=== PATIENT | male | born 1950 | race Caucasian/White ===

== ENCOUNTER 2023-11-23 10:13 | Outpatient (AMB) | payer OTHER, SELFPAY ==
--- NOTE | 2023-11-23 09:30 | MHC.PC.OV ---
Vital Signs 11/23/23 10:34 Height 5 ft 6.34 in Weight 247 lb BMI 39.5 BP 122/67 Blood Pressure Location Lt brachial Position Sitting Respiration 16 Pulse 86 Pulse Source Pulse Oximeter Temp 97.6 F Temp Source Oral Pulse Oximetry (%) 97 Oxygen Delivery Method Room Air Intake Visit Reasons: Follow Up ER Intake Note: New patient visit Commercial Lines Account Manager Required: No Allergies Opioids - Morphine Analogues Allergy (Unknown, Verified 11/23/23 10:23) Rash Medication List - Last Reconciled 11/23/23 by Mandy Mcpherson MD aspirin (Adult Low Dose Aspirin) 81 mg PO DAILY atorvastatin 80 mg PO DAILY blood sugar diagnostic (FreeStyle Lite Strips) As directed colchicine 0.6 mg PO DAILY dulaglutide (Trulicity) 0.75 mg subcut QWEEK empagliflozin (Jardiance) 10 mg PO DAILY furosemide 20 mg PO DAILY glucosamine sulfate 1,000 mg PO BID insulin glargine (Lantus Solostar U-100 Insulin) 42 units subcut QAM lancets (FreeStyle Lancets) As directed lisinopril 10 mg PO BID metoprolol tartrate (Lopressor) 50 mg PO BID nitroglycerin 0.3 mg sublingual Q5M PRN Tobacco use date assessed: 11/23/23 Fall risk assessment: No Falls in past year Dental Screening Dental Screen Date: 11/23/23 Did you have a dental visit in the last 12 months?: No Did you have a dental problem in the last 6 months where you did not have access to dental care?: Yes Was dental information given to patient?: No (Patient will find one ) HPI HPI Comments History of Present Illness Details The patient is a 73 year old male with a past medical history of type 2 diabetes, insulin use, CAD, dCHF, hypertension, hyperlpidemia, GERD, OA, MRSA, obesity, gout presenting for follow up Endocrine: Type 2 insulin dependent diabetes. On lantus 42 units, trulicity, jardiance. Last A1C 7.7% 08/2023. UTD for eye exam-Dr Poole, [facility]. Denies neuropathy. No podiatry. CV: Follows with Dr Faulkner. CAD s/p PCI LAD 2005 and ANASTASIA to OM 2008 then CABG x 4 ~04/2016. On ASA, lipitor, lisinopril, lopressor, lasix, and NTG prn. History of colon polyp. Says last colonoscopy ~8 years ago, told 10 years, records pending [facility] Surgical History (Updated 11/23/23 @ 10:54 by Joyce Camilo CMA) History of knee replacement procedure of right knee Family History (Updated 11/23/23 @ 11:02 by Joyce Camilo CMA) Maternal Grandfather Cardiovascular disease Maternal Grandmother Diabetes Hypercholesteremia Social History Housing: House Patient Tobacco Use Status: Former Tobacco user e-Cigarette/Vaping Use: Never Used Second Hand Smoke Exposure: No service: Yes Current occupational status: retired Cognitive needs: No Hearing needs: Yes ( states he needs hearing aids) Vision needs: Yes (glasses) Questionnaire PHQ-9 Over the last 2 weeks, how often have you been bothered by any of the following problems? 1. Little interest or pleasure in doing things: not at all 2. Feeling down, depressed, or hopeless: not at all 3. Trouble falling or staying asleep, or sleeping too much: not at all 4. Feeling tired or having little energy: not at all 5. Poor appetite or overeating: not at all 6. Feeling bad about yourself - or that you are a failure or have let yourself or your family down: not at all 7. Trouble concentrating on things, such as reading the newspaper or watching television: not at all 8. Moving or speaking so slowly that other people could have noticed. Or the opposite - being so fidgety or restless that you have been moving around a lot more than usual: not at all 9. Thoughts that you would be better off or of hurting yourself in some way: not at all Total score: 0 Depression Screening Interpretation: Negative (noted) Depression Screening Done: Yes 19225 - PHQ-9 Billing: Yes Source: Developed by Drs. Gary Davidson, Mary Moe, Chris Johnson and colleagues, with an educational jayesh from [employer]. Thrive Questionnaire Date Thrive assessed: 11/23/23 I am a: Patient What is your living situation today?: I have a steady place to live Within the past 12 months, did the food you bought not last and you didn't have the money to get more?: Never true Within the past 12 months, did you worry whether your food would run out before you got money to buy more?: Never true Do you have trouble paying for medicines?: No Do you have trouble getting transportation to medical appointments?: No Do you have trouble paying your heating and electricity bill?: No Do you have trouble taking care of your child, family member or friend?: No Do you have trouble with day-to-day activities such as bathing, preparing meals, shopping, managing finances, etc.?: No Are you currently unemployed and looking for a job?: No Are you interested in more education?: No Please select the resources that you would like help with: None Currently or been in a relationship where the following occur: no concerns reported THRIVE Score: 0 AUDIT C Alcohol Use Questionnaire (AUDIT-C) 1. How often do you have a drink containing alcohol?: Monthly or less 2. How many drinks containing alcohol do you have on a typical day when you are drinking?: 1 or 2 3. How often do you have six or more drinks on one occasion?: Never Total Score: 1 JOELLE-7 AMB Questionnaire JOELLE-7 Date JOELLE - 7 assessed: 11/23/23 Feeling nervous, anxious, or on edge: 0 = Not at all Not being able to stop or control worryin = Not at all Worrying too much about different things: 0 = Not at all Trouble relaxin = Not at all Being so restless that it is hard to sit still: 0 = Not at all Becoming easily annoyed or irritable: 0 = Not at all Feeling afraid as if something awful might happen: 0 = Not at all Total JOELLE-7 score (0-4 normal; 5-9 mild; 10-14 moderate; 15-21 severe): 0 Source: Developed by Drs. Gary Davidson, Mary Moe, Chris Johnson and colleagues, with an educational jayesh from [employer]. JOELLE-7 Assessment Billing JOELLE-7 Assessment Tool: JOELLE-7 Assessment 36108 Review of Systems Const Details: ROS CONSTITUTIONAL: Denies weight loss, fever and chills. HEENT: Denies changes in vision and hearing. RESPIRATORY: Denies SOB and cough. CV: Denies palpitations and CP GI: Denies abdominal pain, nausea, vomiting and diarrhea. : Denies dysuria and urinary frequency. MSK: Denies new myalgia and joint pain. SKIN: Denies rash and pruritus. NEUROLOGICAL: Denies headache PSYCHIATRIC: Denies recent changes in mood. Physical exam (Primary Care) Vital Signs: Last Vital Signs Temp 97.6 F 11/23/23 10:34 Pulse 86 11/23/23 10:34 Resp 16 11/23/23 10:34 BP 122/67 11/23/23 10:34 Pulse Ox 97 11/23/23 10:34 Oxygen Delivery Method Room Air 11/23/23 10:34 PHYSICAL EXAM: GENERAL: Alert and oriented x 3. NAD EYES: EOMI. Anicteric. HENT: Moist mucous membranes. No scleral icterus. No cervical lymphadenopathy. LUNGS: Clear to auscultation bilaterally. CARDIOVASCULAR: Regular rate and rhythm. No murmur. No JVD. ABDOMEN: Soft, non-tender +bs EXTREMITIES: No edema. Non-tender. SKIN: No rashes or lesions. Warm. NEUROLOGIC: No focal neurological deficits. CN II-XII grossly intact PSYCHIATRIC: Cooperative. Appropriate mood and affect BMI result Body Mass Index 39.5 Tobacco/Smoking Status: Tobacco use Status Tobacco use date assessed 11/23/23 11/23/23 09:43 Patient Tobacco Use Status Former Tobacco user 11/23/23 09:43 e-Cigarette/Vaping Use Never Used 11/23/23 09:43 Depression Screening Interpretation: Negative (noted) Currently or been in a relationship where the following occur: no concerns reported Assessment and Plan Assessment & Plan (1) CAD (coronary artery disease): Comment: stable. utd with cardiology. continue bb, MATTHEW, asa, jardiance Code(s): I25.10 - Atherosclerotic heart disease of [place] coronary artery without angina pectoris Qualifiers: Associated angina: without angina Coronary Disease-Associated Artery/Lesion type: bypass graft Circle vs. transplanted heart: [place] heart Qualified Code(s): I25.810 - Atherosclerosis of coronary artery bypass graft(s) without angina pectoris (2) History of four vessel coronary artery bypass graft: Code(s): Z95.1 - Presence of aortocoronary bypass graft (3) Type 2 diabetes mellitus with hyperglycemia, with long-term current use of insulin: Comment: Due for A1C Continued efforts toward weight loss-decrease calories, carbohydrates and increase exercise Continue current medications pending results Code(s): E11.65 - Type 2 diabetes mellitus with hyperglycemia; Z79.4 - [facility] (current) use of insulin (4) Morbid obesity: Comment: Recommend 30 minutes cardiovascular exercise at least 5 times weekly, continue GLP, decrease calories Code(s): E66.01 - Morbid (severe) obesity due to excess calories (5) MRSA (methicillin resistant Staphylococcus aureus) colonization: Comment: no recent infections Code(s): Z22.322 - Carrier or suspected carrier of Methicillin resistant Staphylococcus aureus (6) Colon polyp: Code(s): K63.5 - Polyp of colon Qualifiers: Colon location: unspecified part of colon Colon polyp type: unspecified Qualified Code(s): K63.5 - Polyp of colon (7) Hepatic steatosis: Code(s): K76.0 - Fatty (change of) liver, not elsewhere classified (8) GERD (gastroesophageal reflux disease): Code(s): K21.9 - Gastro-esophageal reflux disease without esophagitis Qualifiers: Esophagitis presence: esophagitis presence not specified Qualified Code(s): K21.9 - Gastro-esophageal reflux disease without esophagitis (9) Gout: Code(s): M10.9 - Gout, unspecified Qualifiers: Gout etiology: idiopathic Gout site: unspecified site Chronicity: unspecified Qualified Code(s): M10.00 - Idiopathic gout, unspecified site (10) Osteoarthritis: Code(s): M19.90 - Unspecified osteoarthritis, unspecified site Qualifiers: Osteoarthritis location: multiple joints Osteoarthritis type: primary Qualified Code(s): M15.9 - Polyosteoarthritis, unspecified (11) Diastolic congestive heart failure: Code(s): I50.30 - Unspecified diastolic (congestive) heart failure Qualifiers: Heart failure chronicity: chronic Qualified Code(s): I50.32 - Chronic diastolic (congestive) heart failure (12) History of tobacco use: Code(s): Z87.891 - Personal history of nicotine dependence Plan: quit 2005. consider screening ldct Orders: Orders Microalbumin, Random (w Creat) Today E11.65 - Type 2 diabetes mellitus with hyperglycemia, I25.10 - Atherosclerotic heart disease of [place] coronary artery without angina pectoris, Z79.4 - [facility] (current) use of insulin Hemoglobin A1c Today E11.65 - Type 2 diabetes mellitus with hyperglycemia, I25.10 - Atherosclerotic heart disease of [place] coronary artery without angina pectoris, Z79.4 - [facility] (current) use of insulin Comprehensive Met. Panel Today E11.65 - Type 2 diabetes mellitus with hyperglycemia, I25.10 - Atherosclerotic heart disease of [place] coronary artery without angina pectoris, Z79.4 - [facility] (current) use of insulin Lipid Panel Today E11.65 - Type 2 diabetes mellitus with hyperglycemia, I25.10 - Atherosclerotic heart disease of [place] coronary artery without angina pectoris, Z79.4 - [facility] (current) use of insulin Medications: New nitroglycerin do not exceed 3 doses per episode 0.3 mg sublingual Q5M PRN 30 tabs 3RF chest pain Coding Level of Care Code Est Pt Level 5 (27548) Complex EM visit Add On G2211 Diagnoses Coronary artery disease involving coronary bypass graft of [place] heart without angina pectoris I25.810 Associated angina: without angina Coronary Disease-Associated Artery/Lesion type: bypass graft Circle vs. transplanted heart: [place] heart History of four vessel coronary artery bypass graft Z95.1 Type 2 diabetes mellitus with hyperglycemia, with long-term current use of insulin E11.65; Z79.4 Morbid obesity E66.01 MRSA (methicillin resistant Staphylococcus aureus) colonization Z22.322 Polyp of colon, unspecified part of colon, unspecified type K63.5 Colon location: unspecified part of colon Colon polyp type: unspecified Hepatic steatosis K76.0 Gastroesophageal reflux disease, unspecified whether esophagitis present K21.9 Esophagitis presence: esophagitis presence not specified Idiopathic gout, unspecified chronicity, unspecified site M10.00 Gout etiology: idiopathic Gout site: unspecified site Chronicity: unspecified Primary osteoarthritis involving multiple joints M15.9 Osteoarthritis location: multiple joints Osteoarthritis type: primary Chronic diastolic congestive heart failure I50.32 Heart failure chronicity: chronic History of tobacco use Z87.891 Additional Codes JOELLE-7 Assessment Billing - JOELLE-7 Assessment Tool: JOELLE-7 Assessment 01549 ([id number]) Time Spent (min) 44
[2023-11-23 10:34] VITALS: BP 122/67; PULSE 86; RESP 16; TEMP 36.4; O2SAT 97; BMI 39.5
== END 2023-11-23 11:08 | disposition home or self-care (01) ==
PROVIDERS: PCP Internal Medicine; Visit Provider Internal Medicine
DX: E11.65 Type 2 diabetes mellitus with hyperglycemia (principal); Z79.4 Long term (current) use of insulin; E66.01 Morbid (severe) obesity due to excess calories; Z68.39 Body mass index [BMI] 39.0-39.9, adult; I50.32 Chronic diastolic (congestive) heart failure; I25.810 Atherosclerosis of coronary artery bypass graft(s) without angina pectoris; Z95.1 Presence of aortocoronary bypass graft; Z22.322 Carrier or suspected carrier of Methicillin resistant Staphylococcus aureus; K63.5 Polyp of colon; K76.0 Fatty (change of) liver, not elsewhere classified; K21.9 Gastro-esophageal reflux disease without esophagitis; M10.00 Idiopathic gout, unspecified site
CPT/HCPCS: 99215; G2211

== ENCOUNTER 2023-11-23 11:20 | Outpatient (REF) | payer OTHER, SELFPAY ==
[2023-11-23 15:40] LABS: Estimated Average Glucose 174 mg/dL; Hemoglobin A1c % 7.7 % (<6.0)
[2023-11-23 16:56] LABS: Creatinine Urine 43.09 mg/dL; Microalbum/Creatinine Ratio Ur 13.9 ug/mg cr (<30)
[2023-11-23 17:11] LABS: Alanine Aminotransferase 28 U/L (0-40); Alkaline Phosphatase 78 U/L (39-117); Anion Gap 14 (12-20); Aspartate Amino Transferase 24 U/L (5-37); Blood Urea Nitrogen 19 mg/dL (9-16); Calcium 9.5 mg/dL (8.4-10.2); Carbon Dioxide 23 mmol/L (22-29); Chloride 108 mmol/L (96-108); Cholesterol 101 mg/dL (<200); Estimated Glomerular Filt Rate 47; Glucose Random 196 mg/dL (60-115); HDL Cholesterol 35 mg/dL (>40); LDL Cholesterol Calculated 23 mg/dL (<100); Potassium 3.7 mmol/L (3.3-5.1); Sodium 141 mmol/L (135-145); Triglycerides 218 mg/dL (<150)
== END 2023-11-23 11:21 | disposition home or self-care (01) ==
LOC: HO.WFDLDS 11:20
PROVIDERS: Visit Provider Internal Medicine
DX: I25.10 Atherosclerotic heart disease of native coronary artery without angina pectoris (principal); E11.65 Type 2 diabetes mellitus with hyperglycemia; Z79.4 Long term (current) use of insulin
CPT/HCPCS: 36415; 80053; 80061; 82043; 82570; 83036

== ENCOUNTER 2024-02-13 08:44 | Outpatient (AMB) | payer OTHER, SELFPAY ==
--- NOTE | 2024-02-13 08:50 | A.OFFPC_ITS ---
Vital Signs 02/13/24 08:57 Height 5 ft 6.34 in Weight 252 lb BMI 40.3 BP 108/68 Blood Pressure Location Lt brachial Position Sitting Respiration 13 Pulse 78 Pulse Source Pulse Oximeter Pulse Oximetry (%) 94 Oxygen Delivery Method Room Air Intake Visit Reasons: follow up, 6 months AWV Intake Note: Patient is here for a check up, states he has dark spots on his arms and finds them unnerving. Patient reports swelling with his right foot without cause or injury. Ladies Attendant Required: No Accompanied by: Self / Same As Patient Allergies Opioids - Morphine Analogues Allergy (Unknown, Verified 02/13/24 09:02) Rash Tobacco use date assessed: 11/23/23 Fall risk assessment: No Falls in past year Last assessed Fall Risk: 02/13/24 Dental Screening Dental Screen Date: 11/23/23 HPI HPI Comments History of Present Illness Details The patient is a 73 year old male with a past medical history of type 2 diabetes, insulin use, CAD, dCHF, hypertension, hyperlpidemia, GERD, OA, MRSA, obesity, gout presenting for follow up. Last CPE 09/2023 Endocrine: Type 2 insulin dependent diabetes. On lantus 42 units, trulictaylor, jardiance. Last A1C 7.6% 10/2023. UTD for eye exam-Dr Poole, [facility]. No podiatry. ED-failed viagra, prn cilais in the past CV: Follows with Dr Faulkner. CAD s/p PCI LAD 2005 and ANASTASIA to OM 2008 then CABG x ~04/2016. On ASA, lipitor, lisinopril, lopressor, lasix, and NTG prn. Reports some right foot swelling. Some right lower leg swelling. Some pain right mid foot. No skin opening. Denies injury MSK: Stable right sided sciatica. History of colon polyp. Last colonoscopy 2014-advised 10 year repeat. ROS CONSTITUTIONAL: Denies weight loss, fever and chills. HEENT: Denies changes in vision and hearing. RESPIRATORY: Denies SOB and cough. CV: Denies palpitations and CP GI: Denies abdominal pain, nausea, vomiting and diarrhea. : Denies dysuria and urinary frequency. MSK: Denies new myalgia and joint pain. SKIN: Denies rash and pruritus. NEUROLOGICAL: Denies headache PSYCHIATRIC: Denies recent changes in mood. PHYSICAL EXAM: GENERAL: Alert and oriented x 3. NAD EYES: EOMI. Anicteric. HENT: Moist mucous membranes. No scleral icterus. No cervical lymphadenopathy. LUNGS: Clear to auscultation bilaterally. CARDIOVASCULAR: Regular rate and rhythm. No murmur. No JVD. ABDOMEN: Soft, non-tender +bs EXTREMITIES: No edema. Non-tender. SKIN: No rashes or lesions. Warm. NEUROLOGIC: No focal neurological deficits. CN II-XII grossly intact PSYCHIATRIC: Cooperative. Appropriate mood and affect [facility] Surgical History (Updated 11/23/23 @ 10:54 by Joyce Camilo CMA) History of knee replacement procedure of right knee Family History (Updated 11/23/23 @ 11:02 by Joyce Camilo CMA) Maternal Grandfather Cardiovascular disease Maternal Grandmother Diabetes Hypercholesteremia Social History (Updated 11/23/23 @ 10:54 by Joyce Camilo CMA) Housing: House Patient Tobacco Use Status: Former Tobacco user e-Cigarette/Vaping Use: Never Used Second Hand Smoke Exposure: No service: Yes Current occupational status: retired Cognitive needs: No Hearing needs: Yes ( states he needs hearing aids) Vision needs: Yes (glasses) Questionnaire Thrive Questionnaire Date Thrive assessed: 11/23/23 JOELLE-7 AMB Questionnaire JOELLE-7 Date JOELLE - 7 assessed: 11/23/23 Source: Developed by Drs. Gary Davidson, Mary Moe, Chris Johnson and colleagues, with an educational jayesh from [email or web address]. Physical exam (Primary Care) Vital Signs: Last Vital Signs Pulse 78 02/13/24 08:57 Resp 13 02/13/24 08:57 BP 108/68 02/13/24 08:57 Pulse Ox 94 02/13/24 08:57 Oxygen Delivery Method Room Air 02/13/24 08:57 BMI result Body Mass Index 40.3 Tobacco/Smoking Status: Tobacco use Status Tobacco use date assessed 11/23/23 02/13/24 08:52 Patient Tobacco Use Status Former Tobacco user 02/13/24 08:52 e-Cigarette/Vaping Use Never Used 02/13/24 08:52 Thrive Assessment: Date of Thrive Assessment Date Thrive assessed 11/23/23 02/13/24 08:52 Assessment and Plan Assessment & Plan (1) Type 2 diabetes mellitus with hyperglycemia, with long-term current use of insulin: Comment: Due for A1C Continued efforts toward weight loss-decrease calories, carbohydrates and increase exercise Continue current medications pending results Code(s): E11.65 - Type 2 diabetes mellitus with hyperglycemia; Z79.4 - adjunct faculty for medical terminology (current) use of insulin Orders: Orders Complete Blood Count Auto Diff Today E11.65 - Type 2 diabetes mellitus with hyperglycemia, I50.32 - Chronic diastolic (congestive) heart failure, Z12.5 - Encounter for screening for malignant neoplasm of prostate, Z79.4 - skilled nursing (current) use of insulin Lipid Panel Today E11.65 - Type 2 diabetes mellitus with hyperglycemia, I50.32 - Chronic diastolic (congestive) heart failure, Z12.5 - Encounter for screening for malignant neoplasm of prostate, Z79.4 - adjunct faculty for medical terminology (current) use of insulin Prostate Specific Antigen Today E11.65 - Type 2 diabetes mellitus with hyperglycemia, I50.32 - Chronic diastolic (congestive) heart failure, Z12.5 - Encounter for screening for malignant neoplasm of prostate, Z79.4 - adjunct faculty for medical terminology (current) use of insulin Comprehensive Met. Panel Today E11.65 - Type 2 diabetes mellitus with hyperglycemia, I50.32 - Chronic diastolic (congestive) heart failure, Z12.5 - Encounter for screening for malignant neoplasm of prostate, Z79.4 - adjunct faculty for medical terminology (current) use of insulin Hemoglobin A1c Today E11.65 - Type 2 diabetes mellitus with hyperglycemia, I50.32 - Chronic diastolic (congestive) heart failure, Z12.5 - Encounter for screening for malignant neoplasm of prostate, Z79.4 - adjunct faculty for medical terminology (current) use of insulin Medications: Changed From furosemide 20 mg PO DAILY To furosemide 40 mg (2 x 20 mg) PO DAILY 90 days 180 tabs 3RF Discontinued prednisone Take two tablet oral daily until gout almost resolved then take 1 tab oral daily for 2 days then stop Discontinued Reason: Doctor's Order 40 mg (2 x 20 mg) PO DAILY 14 days 28 tabs 0RF Coding Level of Care Code Est Pt Level 4 (19133) Diagnoses Type 2 diabetes mellitus with hyperglycemia, with long-term current use of insulin E11.65; Z79.4
[2024-02-13 08:57] VITALS: BP 108/68; PULSE 78; RESP 13; O2SAT 94; BMI 40.3
== END 2024-02-13 09:35 | disposition home or self-care (01) ==
PROVIDERS: PCP Internal Medicine; Visit Provider Internal Medicine
DX: E11.65 Type 2 diabetes mellitus with hyperglycemia (principal); Z79.4 Long term (current) use of insulin
CPT/HCPCS: 99214

== ENCOUNTER 2024-02-13 09:39 | Outpatient (REF) | payer OTHER, SELFPAY ==
[2024-02-13 11:12] LABS: MANUAL DIFF FLAG NO
[2024-02-13 11:34] LABS: Basophils Absolute Auto 0.1 X10*3/uL (0.0-0.2); Basophils Percent Auto 0.8 % (0-2); Eosinophils Absolute Auto 0.1 X10*3/uL (0.0-0.4); Eosinophils Percent Auto 2.1 % (0-4); Hematocrit 46.6 % (42.0-52.0); Hemoglobin 16.1 g/dl (14.0-18.0); Imm Gran Abs Auto 0.06 X10*3/uL (0.00-0.03); Lymphocytes Absolute Auto 1.3 X10*3/uL (1.2-4.9); Lymphocytes Percent Auto 21.3 % (20-40); Mean Corpuscular HGB Conc 34.5 g/dl (31.0-36.0); Mean Corpuscular Hemoglobin 30.7 pg (27.0-33.0); Mean Corpuscular Volume 88.8 fL (80.0-98.0); Mean Platelet Volume 10.6 fL (9.4-12.4); Monocytes Absolute Auto 0.4 X10*3/uL (0.1-1.2); Neutrophils Absolute Auto 4.1 x10*3/uL (2.0-8.3); Neutrophils Percent Auto 67.8 % (45-73); Platelet Count 172 X10*3/uL (160-400); Red Blood Count 5.25 X10*6/uL (4.60-5.80); Red Cell Distribution Width 13.5 % (11.0-16.0); White Blood Count 6.1 X10*3/uL (4.8-10.8)
[2024-02-13 11:42] LABS: Alanine Aminotransferase 31 U/L (0-40); Albumin Level 3.8 g/dL (3.5-5.0); Alkaline Phosphatase 85 U/L (39-117); Anion Gap 14 (12-20); Aspartate Amino Transferase 32 U/L (5-37); Bilirubin Total 0.9 mg/dL (0.0-1.0); Blood Urea Nitrogen 19 mg/dL (9-16); Calcium 8.5 mg/dL (8.4-10.2); Carbon Dioxide 20 mmol/L (22-29); Chloride 109 mmol/L (96-108); Cholesterol 116 mg/dL (<200); Estimated Glomerular Filt Rate 57; Glucose Random 217 mg/dL (60-115); HDL Cholesterol 33 mg/dL (>40); LDL Cholesterol Calculated 16 mg/dL (<100); Potassium 4.2 mmol/L (3.3-5.1); Sodium 139 mmol/L (135-145); Total Protein 6.7 g/dL (6.5-8.0); Triglycerides 339 mg/dL (<150)
[2024-02-13 11:47] LABS: Estimated Average Glucose 183 mg/dL
[2024-02-13 12:18] LABS: Prostate Specific Antigen 0.19 ng/mL (<0.05-4.0)
== END 2024-02-13 09:40 | disposition home or self-care (01) ==
LOC: HO.WFDLDS 09:39
PROVIDERS: Visit Provider Internal Medicine
DX: I50.32 Chronic diastolic (congestive) heart failure (principal); E11.65 Type 2 diabetes mellitus with hyperglycemia; Z79.4 Long term (current) use of insulin; Z12.5 Encounter for screening for malignant neoplasm of prostate
CPT/HCPCS: 36415; 80053; 80061; 83036; 84153; 85025

== ENCOUNTER 2024-06-01 11:03 | Outpatient (AMB) | payer OTHER, SELFPAY ==
--- NOTE | 2024-06-01 11:21 | MHC.PC.OV ---
Intake Visit Reasons: [facility] Intake Note: Physical Leader Writer Required: No Allergies Opioids - Morphine Analogues Allergy (Unknown, Verified 06/01/24 11:22) Rash Tobacco use date assessed: 11/23/23 Dental Screening Dental Screen Date: 11/23/23 HPI HPI Comments History of Present Illness Details The patient is a 73 year old male with a past medical history of type 2 diabetes, insulin use, CAD, dCHF, hypertension, hyperlpidemia, GERD, OA, MRSA, obesity, gout presenting for follow up. Last CPE 09/2023 Endocrine: Type 2 insulin dependent diabetes. On lantus 42 units, trulicity, jardiance. A1C 5.7% 06/01/24 from 7.6%. UTD for eye exam-Dr Poole, [facility]. No podiatry. ED-failed viagra, prn cilais in the past CV: Follows with Dr Faulkner. CAD s/p PCI LAD 2005 and ANASTASIA to OM 2008 then CABG x 4 ~04/2016. On ASA, lipitor, lisinopril, lopressor, lasix, and NTG prn. Reports some right foot swelling. Some right lower leg swelling. Some pain right mid foot. No skin opening. Denies injury MSK: Stable right sided sciatica. History of colon polyp. Last colonoscopy 2014-advised 10 year repeat. ROS CONSTITUTIONAL: Denies weight loss, fever and chills. HEENT: Denies changes in vision and hearing. RESPIRATORY: Denies SOB and cough. CV: Denies palpitations and CP GI: Denies abdominal pain, nausea, vomiting and diarrhea. : Denies dysuria and urinary frequency. MSK: Denies new myalgia and joint pain. SKIN: Denies rash and pruritus. NEUROLOGICAL: Denies headache PSYCHIATRIC: Denies recent changes in mood. PHYSICAL EXAM: GENERAL: Alert and oriented x 3. NAD EYES: EOMI. Anicteric. HENT: Moist mucous membranes. No scleral icterus. No cervical lymphadenopathy. LUNGS: Clear to auscultation bilaterally. CARDIOVASCULAR: Regular rate and rhythm. No murmur. No JVD. ABDOMEN: Soft, non-tender +bs EXTREMITIES: No edema. Non-tender. SKIN: No rashes or lesions. Warm. NEUROLOGIC: No focal neurological deficits. CN II-XII grossly intact PSYCHIATRIC: Cooperative. Appropriate mood and affect [facility] Surgical History (Updated 11/23/23 @ 10:54 by Joyce Camilo CMA) History of knee replacement procedure of right knee Family History (Updated 11/23/23 @ 11:02 by Joyce Camilo CMA) Maternal Grandfather Cardiovascular disease Maternal Grandmother Diabetes Hypercholesteremia Social History (Updated 11/23/23 @ 10:54 by Joyce Camilo CMA) Housing: House Patient Tobacco Use Status: Former Tobacco user e-Cigarette/Vaping Use: Never Used Second Hand Smoke Exposure: No service: Yes Current occupational status: retired Cognitive needs: No Hearing needs: Yes ( states he needs hearing aids) Vision needs: Yes (glasses) Questionnaire Thrive Questionnaire Date Thrive assessed: 11/23/23 JOELLE-7 AMB Questionnaire JOELLE-7 Date JOELLE - 7 assessed: 11/23/23 Source: Developed by Drs. Gary Davidson, Mary Moe, Chris Johnson and colleagues, with an educational jayesh from [employer]. Physical exam (Primary Care) Tobacco/Smoking Status: Tobacco use Status Tobacco use date assessed 11/23/23 06/01/24 11:21 Patient Tobacco Use Status Former Tobacco user 06/01/24 11:21 e-Cigarette/Vaping Use Never Used 06/01/24 11:21 Thrive Assessment: Date of Thrive Assessment Date Thrive assessed 11/23/23 06/01/24 11:21 Results AMB Hemoglobin A1c AMB Hemoglobin A1c 5.7 % Last Edit by Joyce Camilo CMA on 06/01/24 13:30 Results Reviewed Results Reviewed: Laboratory Last Values Hgb A1c (Clinic) 5.7 % (4.0-6.0) 06/01/24 11:32 Coding Level of Care Code Est Pt Level 4 (64962) Diagnoses Type 2 diabetes mellitus with hyperglycemia, with long-term current use of insulin E11.65; Z79.4 Chronic diastolic congestive heart failure I50.32 Heart failure chronicity: chronic Assessment & Plan Assessment & Plan (1) Type 2 diabetes mellitus with hyperglycemia, with long-term current use of insulin: Code(s): E11.65 - Type 2 diabetes mellitus with hyperglycemia; Z79.4 - shelter (current) use of insulin Category: Medical Plan: Continued efforts toward weight loss-decrease calories, carbohydrates and increase exercise Continue current medications, well controlled (2) Diastolic congestive heart failure: Code(s): I50.30 - Unspecified diastolic (congestive) heart failure Category: Medical Qualifiers: Heart failure chronicity: chronic Qualified Code(s): I50.32 - Chronic diastolic (congestive) heart failure Plan: euvolemic. 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 Lipid Panel 3 Months D69.2 - Other nonthrombocytopenic purpura, E11.65 - Type 2 diabetes mellitus with hyperglycemia, I25.810 - Atherosclerosis of coronary artery bypass graft(s) without angina pectoris, I50.32 - Chronic diastolic (congestive) heart failure, Z79.4 - shelter (current) use of insulin AMB Hemoglobin A1c Today E11.65 - Type 2 diabetes mellitus with hyperglycemia, Z79.4 - shelter (current) use of insulin Pathologist Review - CBC 3 Months D69.2 - Other nonthrombocytopenic purpura, E11.65 - Type 2 diabetes mellitus with hyperglycemia, I25.810 - Atherosclerosis of coronary artery bypass graft(s) without angina pectoris, I50.32 - Chronic diastolic (congestive) heart failure, 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
== END 2024-06-01 12:01 | disposition home or self-care (01) ==
LOC: HO.HMCFM 11:03
PROVIDERS: PCP Internal Medicine; Visit Provider Internal Medicine
DX: E11.65 Type 2 diabetes mellitus with hyperglycemia (principal); Z79.4 Long term (current) use of insulin; I50.32 Chronic diastolic (congestive) heart failure

== ENCOUNTER → 2024-06-01 11:03 | Outpatient (BNVA) | payer OTHER, SELFPAY | PROVIDERS: PCP Internal Medicine; Visit Provider Internal Medicine | DX: E11.65 Type 2 diabetes mellitus with hyperglycemia (principal); I11.0 Hypertensive heart disease with heart failure; I50.32 Chronic diastolic (congestive) heart failure; I25.810 Atherosclerosis of coronary artery bypass graft(s) without angina pectoris; D69.2 Other nonthrombocytopenic purpura; N52.9 Male erectile dysfunction, unspecified; Z79.4 Long term (current) use of insulin; Z79.82 Long term (current) use of aspirin; Z79.899 Other long term (current) drug therapy | CPT/HCPCS: 83036; 99212 ==

== ENCOUNTER → 2024-06-26 13:07 | Outpatient (BNVA) | payer OTHER, SELFPAY | PROVIDERS: PCP Internal Medicine; Visit Provider Internal Medicine | DX: J98.8 Other specified respiratory disorders (principal); E11.9 Type 2 diabetes mellitus without complications; I11.0 Hypertensive heart disease with heart failure; I50.9 Heart failure, unspecified; E78.5 Hyperlipidemia, unspecified; N52.9 Male erectile dysfunction, unspecified; M54.31 Sciatica, right side; Z79.4 Long term (current) use of insulin; Z79.82 Long term (current) use of aspirin; Z79.899 Other long term (current) drug therapy | CPT/HCPCS: 96127; 99212 ==

== ENCOUNTER → 2024-06-26 13:07 | Outpatient (AMB) | payer OTHER, SELFPAY ==
--- NOTE | 2024-06-26 13:27 | MHC.PC.OV ---
Vital Signs 06/26/24 13:28 Height 5 ft 6.34 in Weight 250 lb 2 oz BMI 40.0 BP 116/52 L Blood Pressure Location Lt brachial Position Sitting Pulse 78 Pulse Source Pulse Oximeter Temp 96 F L Temp Source Oral Intake Visit Reasons: discharged on 06/23 from [facility] Intake Note: Hospital follow up Allergies Opioids - Morphine Analogues Allergy (Unknown, Verified 06/01/24 11:22) Rash Tobacco use date assessed: 11/23/23 Dental Screening Dental Screen Date: 11/23/23 HPI HPI Comments History of Present Illness Details The patient is a 73 year old male with a past medical history of type 2 diabetes, insulin use, CAD, dCHF, hypertension, hyperlpidemia, GERD, OA, MRSA, obesity, gout presenting for ER follow up Patient was evaluated in [facility] ER on Jun 23 with cough and increased shortness of breath for 10 days. ACS r/o. proBNP 184. CXR without pneumonia. Clinical exam consistent with bronchitis. Is now on day 4 of Zpak -doing better, still with some residual cough and shortness of breath intermittently but improving. Endocrine: Type 2 insulin dependent diabetes. On lantus 42 units, trjoni, jarallieance. A1C 5.7% 06/01/24 from 7.6%. UTD for eye exam-Dr Poole, [facility]. No podiatry. ED-failed viagra, prn cilais in the past CV: Follows with Dr Faulkner. CAD s/p PCI LAD 2005 and ANASTASIA to OM 2008 then CABG x 4 ~04/2016. On ASA, lipitor, lisinopril, lopressor, lasix, and NTG prn. Reports some right foot swelling. Some right lower leg swelling. Some pain right mid foot. No skin opening. Denies injury MSK: Stable right sided sciatica. History of colon polyp. Last colonoscopy 2014-advised 10 year repeat. ROS see hpi PHYSICAL EXAM: GENERAL: Alert and oriented x 3. NAD EYES: EOMI. Anicteric. HENT: Moist mucous membranes. No scleral icterus. No cervical lymphadenopathy. LUNGS: scattered left anterior wheeze CARDIOVASCULAR: Regular rate and rhythm. No murmur. No JVD. ABDOMEN: Soft, non-tender +bs EXTREMITIES: No edema. Non-tender. SKIN: No rashes or lesions. Warm. NEUROLOGIC: No focal neurological deficits. CN II-XII grossly intact PSYCHIATRIC: Cooperative. Appropriate mood and affect [facility] Surgical History (Updated 11/23/23 @ 10:54 by Joyce Camilo CMA) History of knee replacement procedure of right knee Family History (Updated 11/23/23 @ 11:02 by Joyce Camilo CMA) Maternal Grandfather Cardiovascular disease Maternal Grandmother Diabetes Hypercholesteremia Social History (Updated 11/23/23 @ 10:54 by Joyce Camilo CMA) Housing: House Patient Tobacco Use Status: Former Tobacco user e-Cigarette/Vaping Use: Never Used Second Hand Smoke Exposure: No service: Yes Current occupational status: retired Cognitive needs: No Hearing needs: Yes ( states he needs hearing aids) Vision needs: Yes (glasses) Questionnaire PHQ-9 Over the last 2 weeks, how often have you been bothered by any of the following problems? 1. Little interest or pleasure in doing things: more than half the days 2. Feeling down, depressed, or hopeless: more than half the days 3. Trouble falling or staying asleep, or sleeping too much: not at all 4. Feeling tired or having little energy: several days 5. Poor appetite or overeating: not at all 6. Feeling bad about yourself - or that you are a failure or have let yourself or your family down: not at all 7. Trouble concentrating on things, such as reading the newspaper or watching television: not at all 8. Moving or speaking so slowly that other people could have noticed. Or the opposite - being so fidgety or restless that you have been moving around a lot more than usual: not at all 9. Thoughts that you would be better off or of hurting yourself in some way: not at all Total score: 5 Depression Screening Interpretation: Positive Depression Screening Follow-up: Declines treatment Depression Screening Done: Yes 29469 - PHQ-9 Billing: Yes Source: Developed by Drs. Gary Davidson, Mary Moe, Chris Johnson and colleagues, with an educational jayesh from [employer]. Thrive Questionnaire Date Thrive assessed: 11/23/23 I am a: Patient What is your living situation today?: I have a steady place to live Within the past 12 months, did the food you bought not last and you didn't have the money to get more?: Never true Within the past 12 months, did you worry whether your food would run out before you got money to buy more?: Never true Do you have trouble paying for medicines?: No Do you have trouble getting transportation to medical appointments?: No Do you have trouble paying your heating and electricity bill?: No Do you have trouble taking care of your child, family member or friend?: No Do you have trouble with day-to-day activities such as bathing, preparing meals, shopping, managing finances, etc.?: No Are you currently unemployed and looking for a job?: I choose not to answer this question Are you interested in more education?: I choose not to answer this question Please select the resources that you would like help with: None Currently or been in a relationship where the following occur: I choose not to answer THRIVE Score: 0 AUDIT C Alcohol Use Questionnaire (AUDIT-C) 1. How often do you have a drink containing alcohol?: Monthly or less Total Score: 1 JOELLE-7 AMB Questionnaire JOELLE-7 Date JOELLE - 7 assessed: 11/23/23 Feeling nervous, anxious, or on edge: 0 = Not at all Not being able to stop or control worryin = Not at all Worrying too much about different things: 0 = Not at all Trouble relaxin = Not at all Being so restless that it is hard to sit still: 0 = Not at all Becoming easily annoyed or irritable: 0 = Not at all Feeling afraid as if something awful might happen: 0 = Not at all Total JOELLE-7 score (0-4 normal; 5-9 mild; 10-14 moderate; 15-21 severe): 0 Source: Developed by Drs. Gary Davidson, Mary Moe, Chris Johnson and colleagues, with an educational jayesh from [employer]. Physical exam (Primary Care) Vital Signs: Last Vital Signs Temp 96 F L 06/26/24 13:28 Pulse 78 06/26/24 13:28 BP 116/52 L 06/26/24 13:28 BMI result Body Mass Index 40.0 Tobacco/Smoking Status: Tobacco use Status Tobacco use date assessed 11/23/23 06/26/24 13:33 Patient Tobacco Use Status Former Tobacco user 06/26/24 13:33 e-Cigarette/Vaping Use Never Used 06/26/24 13:33 PHQ-9: PHQ-9 Score PHQ-9: Total score 5 06/26/24 13:40 Depression Screening Interpretation: Positive Depression Screening Follow-up: Declines treatment Thrive Assessment: Date of Thrive Assessment Date Thrive assessed 11/23/23 06/26/24 13:33 Currently or been in a relationship where the following occur: I choose not to answer Coding Level of Care Code Est Pt Level 4 (52279) Diagnoses Respiratory infection J98.8 Additional Codes PHQ-9 - 33165 - PHQ-9 Billing: Yes ([id number]) Assessment & Plan Assessment & Plan (1) Respiratory infection: Code(s): J98.8 - Other specified respiratory disorders Category: Medical Plan: Add 3 days of prednisone. If worsening will call. If not significant improvement he will call next week for consideration of prolonged/additional abx therapy Medications: New prednisone 40 mg (2 x 20 mg) PO DAILY 6 tabs 0RF
[2024-06-26 13:28] VITALS: BP 116/52; PULSE 78; TEMP 35.5; BMI 40.0
== END ==
PROVIDERS: PCP Internal Medicine; Visit Provider Internal Medicine
DX: J98.8 Other specified respiratory disorders (principal)

== ENCOUNTER 2024-08-28 08:54 | Outpatient (AMB) | payer OTHER, SELFPAY ==
--- NOTE | 2024-08-28 09:06 | MHC.PC.OV ---
Vital Signs 08/28/24 09:11 BP 108/68 Blood Pressure Location Rt brachial Position Sitting Pulse 85 Pulse Source Pulse Oximeter Pulse Oximetry (%) 95 Oxygen Delivery Method Room Air Intake Visit Reasons: [facility] - ER discharge on the 08/07 Engineering Systems Analyst Required: No Allergies Opioids - Morphine Analogues Allergy (Unknown, Verified 06/01/24 11:22) Rash Tobacco use date assessed: 11/23/23 Dental Screening Dental Screen Date: 11/23/23 HPI HPI Comments History of Present Illness Details The patient is a 73 year old male with a past medical history of type 2 diabetes, insulin use, CAD, dCHF, hypertension, hyperlpidemia, GERD, OA, MRSA, obesity, gout presenting for ER follow up Patient was evaluated in [facility] on 08/07/2024 for 2 hour history of shortness of breath, palpitations. EKG nonsichemic-T wave flattening through the precordium. Saturating well on room air. Trops flat. CXR normal. D-dimer age adjusted normal. Offered admission but discharged home. Patient explains to me that blood pressure was low. [place] dizzy, lightheaded. No episodes since. 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 On lantus 42 units, trulicity, jardiance. A1C 5.7% 06/01/24, from 7.6%. UTD for eye exam-Dr Poole, [facility]. No podiatry. ED-failed viagra, prn cilais in the past CV: Follows with Dr Faulkner. CAD s/p PCI LAD 2005 and ANASTASIA to OM 2008 then CABG x ~04/2016. On ASA, lipitor, lisinopril, lopressor, lasix, and NTG prn. MSK: Stable right sided sciatica. History of colon polyp. Last colonoscopy 2014-advised 10 year repeat-referral placed. He has not heard ROS see hpi PHYSICAL EXAM: GENERAL: Alert and oriented x 3. NAD EYES: EOMI. Anicteric. HENT: Moist mucous membranes. No scleral icterus. No cervical lymphadenopathy. LUNGS: scattered left anterior wheeze CARDIOVASCULAR: Regular rate and rhythm. No murmur. No JVD. ABDOMEN: Soft, non-tender +bs EXTREMITIES: No edema. Non-tender. SKIN: No rashes or lesions. Warm. NEUROLOGIC: No focal neurological deficits. CN II-XII grossly intact PSYCHIATRIC: Cooperative. Appropriate mood and affect [facility] Surgical History (Updated 11/23/23 @ 10:54 by Joyce Camilo CMA) History of knee replacement procedure of right knee Family History (Updated 11/23/23 @ 11:02 by Joyce Camilo CMA) Maternal Grandfather Cardiovascular disease Maternal Grandmother Diabetes Hypercholesteremia Social History (Updated 11/23/23 @ 10:54 by Joyce Camilo CMA) Housing: House Patient Tobacco Use Status: Former Tobacco user e-Cigarette/Vaping Use: Never Used Second Hand Smoke Exposure: No service: Yes Current occupational status: retired Cognitive needs: No Hearing needs: Yes ( states he needs hearing aids) Vision needs: Yes (glasses) Questionnaire PHQ-9 Over the last 2 weeks, how often have you been bothered by any of the following problems? 1. Little interest or pleasure in doing things: not at all 2. Feeling down, depressed, or hopeless: not at all 3. Trouble falling or staying asleep, or sleeping too much: not at all 4. Feeling tired or having little energy: several days 5. Poor appetite or overeating: not at all 6. Feeling bad about yourself - or that you are a failure or have let yourself or your family down: not at all 7. Trouble concentrating on things, such as reading the newspaper or watching television: not at all 8. Moving or speaking so slowly that other people could have noticed. Or the opposite - being so fidgety or restless that you have been moving around a lot more than usual: not at all 9. Thoughts that you would be better off or of hurting yourself in some way: not at all Total score: 1 Source: Developed by Drs. Gary Davidson, Mary Moe, Chris Johnson and colleagues, with an educational jayesh from [employer]. Thrive Questionnaire Date Thrive assessed: 08/14/24 I am a: Patient What is your living situation today?: I have a steady place to live Within the past 12 months, did the food you bought not last and you didn't have the money to get more?: Never true Within the past 12 months, did you worry whether your food would run out before you got money to buy more?: Never true Do you have trouble paying for medicines?: No Do you have trouble getting transportation to medical appointments?: No Do you have trouble paying your heating and electricity bill?: No Do you have trouble taking care of your child, family member or friend?: No Do you have trouble with day-to-day activities such as bathing, preparing meals, shopping, managing finances, etc.?: No Are you currently unemployed and looking for a job?: I choose not to answer this question Are you interested in more education?: No Please select the resources that you would like help with: None Currently or been in a relationship where the following occur: No concerns reported THRIVE Score: 0 JOELLE-7 AMB Questionnaire JOELLE-7 Date JOELLE - 7 assessed: 11/23/23 Source: Developed by Drs. Gary Davidson, Mary Moe, Chris Johnson and colleagues, with an educational jayesh from [employer]. Physical exam (Primary Care) Vital Signs: Last Vital Signs Pulse 85 08/28/24 09:11 BP 108/68 08/28/24 09:11 Pulse Ox 95 08/28/24 09:11 Oxygen Delivery Method Room Air 08/28/24 09:11 Tobacco/Smoking Status: Tobacco use Status Tobacco use date assessed 11/23/23 08/28/24 09:10 Patient Tobacco Use Status Former Tobacco user 08/28/24 09:10 e-Cigarette/Vaping Use Never Used 08/28/24 09:10 PHQ-9: PHQ-9 Score PHQ-9: Total score 1 08/28/24 09:15 Thrive Assessment: Date of Thrive Assessment Date Thrive assessed 08/14/24 08/28/24 09:10 Currently or been in a relationship where the following occur: No concerns reported Coding Level of Care Code Est Pt Level 4 (62061) Diagnoses Hospital discharge follow-up Z09 Type 2 diabetes mellitus with hyperglycemia, with long-term current use of insulin E11.65; Z79.4 Time Spent (min) 33 Assessment & Plan Assessment & Plan (1) Hospital discharge follow-up: Code(s): Z09 - Encounter for follow-up examination after completed treatment for conditions other than malignant neoplasm Category: Medical Plan: ER course reviewed No interval chest pain, dyspnea Appropriate cardiology follow up scheduled (2) Type 2 diabetes mellitus with hyperglycemia, with long-term current use of insulin: Code(s): E11.65 - Type 2 diabetes mellitus with hyperglycemia; 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 Follow up for A1C in September
[2024-08-28 09:11] VITALS: BP 108/68; PULSE 85; O2SAT 95
--- OUTSIDE RECORDS SUMMARY | 2024-08-28 09:13 | XMS_ITS | Continuity of Care Document ---
Author Organization Formerly [facility]. If a dditional information is needed, contact Health Information Management at [phone] [place] [address] Phone Care Team Providers Care Harness Cutter Name Role Phone Unavailable Unavailable Unavailable Unavailable Unavailable Unavailable Unavailable Unavailable Problems Pyoderma Onset:23-Oct-2015 [facility] Cellulitis Onset:23-Oct-2015 [facility] Mental Status Cognitive function finding 24-Oct-2015 Cognitive function finding 23-Oct-2015 Cognitive function finding 23-Oct-2015 Functional Status Functional finding 24-Oct-2015 Allergies and Adverse Reactions No Known Allergies(Allergy) Onset: 23-Oct-2015 Medications isosorbide dinitrate 10 MG O ral Tablet;PO DAILY Start:23-Oct-2015 Comments:PO DAILY aspirin 81 MG Delayed Releas e Oral Tablet;81 MILLIGRAM PO DAILY Start:23-Oct-2015 Comments:81 MG PO DAILY metFORMIN hydrochloride 1000 MG Oral Tablet;1000 MILLIGRAM PO BID Start:23-Oct-2015 Comments:1000 MG PO BID glipiZIDE 5 MG Oral Tablet;5 MILLIGRAM PO DAILY Start:23-Oct-2015 Comments:5 MG PO DAILY lisinopril 10 MG Oral Tablet [Prinivil];10 MILLIGRAM PO DAILY Start:23-Oct-2015 Comments:10 MG PO DAILY omeprazole 20 MG Delayed Rel ease Oral Capsule;20 MILLIGRAM PO BID Start:23-Oct-2015 Comments:20 MG PO BID Social History Smoking Status Ex-smoker Recorded: 24-Oct-2015 Never smoked tobacco Recorded: 23-Oct-2015 Never smoked tobacco Recorded: 23-Oct-2015
== END 2024-08-28 09:28 | disposition home or self-care (01) ==
PROVIDERS: PCP Internal Medicine; Visit Provider Internal Medicine
DX: Z09 Encounter for follow-up examination after completed treatment for conditions other than malignant neoplasm (principal); E11.65 Type 2 diabetes mellitus with hyperglycemia; Z79.4 Long term (current) use of insulin

== ENCOUNTER → 2024-08-28 08:54 | Outpatient (BNVA) | payer OTHER, SELFPAY | PROVIDERS: PCP Internal Medicine; Visit Provider Internal Medicine | DX: Z09 Encounter for follow-up examination after completed treatment for conditions other than malignant neoplasm (principal); E11.65 Type 2 diabetes mellitus with hyperglycemia; I25.10 Atherosclerotic heart disease of native coronary artery without angina pectoris; E78.5 Hyperlipidemia, unspecified; Z79.4 Long term (current) use of insulin; Z79.82 Long term (current) use of aspirin; Z79.899 Other long term (current) drug therapy; Z95.1 Presence of aortocoronary bypass graft | CPT/HCPCS: 99212 ==

== ENCOUNTER 2024-10-08 13:55 | Outpatient (AMB) | payer OTHER, SELFPAY ==
--- NOTE | 2024-10-08 14:03 | A.OFFPC_ITS ---
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 EKG nonsichemic-T wave flattening through the precordium. Saturating well on room air. [place] flat. CXR normal. D-dimer age adjusted normal. Offered admission but discharged home. Patient explains to me that blood pressure was low. [place] dizzy, lightheaded. No episodes since. Has follow up with shade cutter on Endocrine: Type 2 insulin dependent diabetes. On lantus 42 units, trulicity, jardiance. A1C 5.7% 06/01/24, from 7.6%. UTD for eye exam-Dr Poole, [facility]. No podiatry. ED-failed viagra, prn cilais in the past CV: Follows with Dr Faulkner. CAD s/p PCI LAD 2005 and ANASTASIA to OM 2008 then CABG x ~04/2016. On ASA, lipitor, lisinopril, lopressor, lasix, and NTG prn. MSK: Stable right sided sciatica. History of colon polyp. Last colonoscopy 2014-advised 10 year repeat-referral placed. He has not heard ROS see hpi PHYSICAL EXAM: GENERAL: Alert and oriented x 3. NAD EYES: EOMI. Anicteric. HENT: Moist mucous membranes. No scleral icterus. No cervical lymphadenopathy. LUNGS: scattered left anterior wheeze CARDIOVASCULAR: Regular rate and rhythm. No murmur. No JVD. ABDOMEN: Soft, non-tender +bs EXTREMITIES: No edema. Non-tender. SKIN: No rashes or lesions. Warm. NEUROLOGIC: No focal neurological deficits. CN II-XII grossly intact PSYCHIATRIC: Cooperative. Appropriate mood and affect [facility] Surgical History (Updated 11/23/23 @ 10:54 by Joyce Camilo CMA) History of knee replacement procedure of right knee Family History (Updated 11/23/23 @ 11:02 by Joyce Camilo CMA) Maternal Grandfather Cardiovascular disease Maternal Grandmother Diabetes Hypercholesteremia Social History (Updated 11/23/23 @ 10:54 by Joyce Camilo CMA) Housing: House Patient Tobacco Use Status: Former Tobacco user e-Cigarette/Vaping Use: Never Used Second Hand Smoke Exposure: No service: Yes Current occupational status: retired Cognitive needs: No Hearing needs: Yes ( states he needs hearing aids) Vision needs: Yes (glasses) Questionnaire Thrive Questionnaire Date Thrive assessed: 08/14/24 I am a: Patient What is your living situation today?: I have a steady place to live Within the past 12 months, did the food you bought not last and you didn't have the money to get more?: Never true Within the past 12 months, did you worry whether your food would run out before you got money to buy more?: Never true Do you have trouble paying for medicines?: No Do you have trouble getting transportation to medical appointments?: No Do you have trouble paying your heating and electricity bill?: No Do you have trouble taking care of your child, family member or friend?: No Do you have trouble with day-to-day activities such as bathing, preparing meals, shopping, managing finances, etc.?: No Are you currently unemployed and looking for a job?: I choose not to answer this question Are you interested in more education?: No Please select the resources that you would like help with: None Currently or been in a relationship where the following occur: No concerns reported THRIVE Score: 0 JOELLE-7 AMB Questionnaire JOELLE-7 Date JOELLE - 7 assessed: 11/23/23 Source: Developed by Drs. Gary Davidson, Mary Moe, Chris Johnson and colleagues, with an educational jayesh from [employer]. Physical exam (Primary Care) Tobacco/Smoking Status: Tobacco use Status Tobacco use date assessed 11/23/23 10/08/24 14:03 Patient Tobacco Use Status Former Tobacco user 10/08/24 14:03 e-Cigarette/Vaping Use Never Used 10/08/24 14:03 Thrive Assessment: Date of Thrive Assessment Date Thrive assessed 08/14/24 10/08/24 14:03 Currently or been in a relationship where the following occur: No concerns reported Results AMB Hemoglobin A1c AMB Hemoglobin A1c 7.9 % Last Edit by SELVIN Michele on 10/08/24 14:19 Coding Assessment & Plan Assessment & Plan Orders: Orders AMB Hemoglobin A1c Today E11.65 - Type 2 diabetes mellitus with hyperglycemia, 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
[2024-10-08 14:12] VITALS: BP 80/50; PULSE 78; RESP 12; TEMP 36.8; O2SAT 96; BMI 39.2
--- OUTSIDE RECORDS SUMMARY | 2024-10-08 15:48 | XMS_ITS | Continuity of Care Document ---
Author Organization [facility]. If a dditional information is needed, contact Health Information Management at [phone] Address [address] [place] [address] Phone Care Team Providers Care Radio Assembler Name Role Phone Unavailable Unavailable Unavailable Unavailable Unavailable Unavailable Unavailable Unavailable Problems Pyoderma Onset:23-Oct-2015 [facility] Cellulitis Onset:23-Oct-2015 [facility] Mental Status Cognitive function finding 24-Oct-2015 Cognitive function finding 23-Oct-2015 Cognitive function finding 23-Oct-2015 Functional Status Functional finding 24-Oct-2015 Allergies and Adverse Reactions No Known Allergies(Allergy) Onset: 23-Oct-2015 Medications isosorbide dinitrate 10 MG O ral Tablet;PO DAILY Start:23-Oct-2015 Comments:PO DAILY aspirin 81 MG Delayed Releas e Oral Tablet;81 MILLIGRAM PO DAILY Start:23-Oct-2015 Comments:81 MG PO DAILY glipiZIDE 5 MG Oral Tablet;5 MILLIGRAM PO DAILY Start:23-Oct-2015 Comments:5 MG PO DAILY lisinopril 10 MG Oral Tablet [Prinivil];10 MILLIGRAM PO DAILY Start:23-Oct-2015 Comments:10 MG PO DAILY omeprazole 20 MG Delayed Rel ease Oral Capsule;20 MILLIGRAM PO BID Start:23-Oct-2015 Comments:20 MG PO BID metFORMIN hydrochloride 1000 MG Oral Tablet;1000 MILLIGRAM PO BID Start:23-Oct-2015 Comments:1000 MG PO BID Social History Smoking Status Ex-smoker Recorded: 24-Oct-2015 Never smoked tobacco Recorded: 23-Oct-2015 Never smoked tobacco Recorded: 23-Oct-2015
--- OUTSIDE RECORDS SUMMARY | 2024-10-08 15:48 | XMS_ITS | Clinical Summary ---
[facility] Address [address] [place] [address] Care Team Providers Care Checking Clerk Name Role Phone Mandy Mcpherson MD Primary Care Provider [phone] Allergies Active Allergy Reactions Criticality Noted Date Comments Morphine Other (See Comments),Swelling 2017 Medications Medication Sig Dispensed Refills Start Date End Date Status aspirin 81 MG tablet Take 324 mg by mouth. 0 10/27/2015 Active atorvastatin (LIPITOR) tablet 80 mg 0 09/06/2018 Active cetirizine (ZyrTEC) 10 MG tablet Take 10 mg by mouth. 0 10/11/2018 Active cyanocobalamin (VITAMIN B12) 1000 MCG/ML injection Inject 1,000 mcg into the muscle. 0 10/11/2017 Active fluticasone (FLONASE) 50 MCG/ACT nasal spray spray or apply 100 mcg inside Nose. 0 10/11/2018 Active furosemide (LASIX) 20 MG tablet 0 10/02/2018 Active GLIPIZIDE XL 10 MG ER 24 hr tablet 0 10/02/2018 Active LANTUS SOLOSTAR 100 UNIT/ML injection 0 10/10/2018 Active lisinopril (PRINIVIL,ZESTRIL) tablet 10 mg 0 10/09/2018 Active metoprolol tartrate (LOPRESSOR) 50 MG tablet Take 50 mg by mouth. 0 08/09/2018 Active nitroglycerin (NITROSTAT) 0.[address] 0.4 mg under the tongue. 0 08/05/2017 Active sildenafil (VIAGRA) 100 MG tablet Take one daily as needed prior to sexual activity 0 04/15/2016 Active SITagliptin (JANUVIA) 50 MG tablet Take 50 mg by mouth. 0 05/08/2018 Active DROPLET PEN NEEDLES 32G X 4 MM MISC 0 01/24/2019 Active metoprolol tartrate (LOPRESSOR) 100 MG tablet 0 01/04/2019 Active Dulaglutide (TRULICITY) 0.75 MG/0.5ML SOPN Inject 0.75 mg under the skin. 0 09/26/2019 Active Active Problems Problem Noted Date Diagnosed Date Primary osteoarthritis of both knees 06/20/2019 Arthritis of knee, right 11/21/2018 Social History Tobacco Use Types Packs/Day Years Used Date Smoking Tobacco: Never Assessed Sex and Gender Information Value Date Recorded Sex Assigned at Not on file Gender Identity Not on file Sexual Orientation Not on file Last Filed Vital Signs Vital Sign Reading Time Taken Comments Blood Pressure - - Pulse - - Temperature - - Respiratory Rate - - Oxygen Saturation - - Inhaled Oxygen Concentration - - Weight 122.5 kg (270 lb) 03/15/2019 10:45 AM EDT Height 172.7 cm (5' 8 ) 03/15/2019 10:45 AM EDT Body Mass Index 41.05 03/15/2019 10:45 AM EDT Plan of Treatment Health Maintenance Due Date Last Done Comments Hepatitis C Screening 1950 COVID-19 Vaccine (#1) 1950 Depression Screening 1962 BMI Counseling 02/14/1968 Preventative Health Evaluation 02/14/1968 Colon Cancer Screening (Colonoscopy) 1995 Shingrix-Zoster Vaccine (1 of 2) 02/14/2000 Fall Risk Assessment 2015 DTap / Tdap / Td (2 - Td or Tdap) 03/11/2021 03/11/2011 Influenza Vaccine (#1) 2024 9, 04/11/2018, 04/29/2017, Additional history exists RSV Adult > 60+ Yrs or (1 - 1-dose 75+ series) 2025 Pneumococcal Vaccine Completed 11/15/2018, 04/30/2015, 09/10/2013, Additional history exists Hepatitis B Vaccines Aged Out No long er eligible based on patient's age to complete this topic RSV Ped < 20 months Aged Out No longe r eligible based on patient's age to complete this topic Care Teams Checking Clerk Relationship Specialty Start Date End Date Mandy Mcpherson MD PCP - General Internal Medicine 11/06/18
== END 2024-10-08 14:28 | disposition home or self-care (01) ==
PROVIDERS: PCP Internal Medicine; Visit Provider Internal Medicine
DX: E11.65 Type 2 diabetes mellitus with hyperglycemia (principal); Z79.4 Long term (current) use of insulin

== ENCOUNTER → 2024-10-08 13:55 | Outpatient (BNVA) | payer OTHER, SELFPAY | PROVIDERS: PCP Internal Medicine; Visit Provider Internal Medicine | DX: E11.65 Type 2 diabetes mellitus with hyperglycemia (principal); I25.810 Atherosclerosis of coronary artery bypass graft(s) without angina pectoris; I10 Essential (primary) hypertension; E78.5 Hyperlipidemia, unspecified; K21.9 Gastro-esophageal reflux disease without esophagitis; M19.90 Unspecified osteoarthritis, unspecified site; E66.9 Obesity, unspecified; Z68.39 Body mass index [BMI] 39.0-39.9, adult; Z79.4 Long term (current) use of insulin | CPT/HCPCS: 83036; 99212 ==

== ENCOUNTER 2024-11-12 12:45 | Outpatient (AMB) | payer OTHER, SELFPAY ==
--- NOTE | 2024-11-12 12:53 | MHC.PC.OV ---
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: No Allergies Opioids - Morphine Analogues Allergy (Unknown, Verified 11/12/24 13:09) Rash Medication List - Last Reconciled 11/12/24 by Nadine Mauricio, EMPLOYMENT PROGRAMS ANALYST- aspirin (Adult Low Dose Aspirin) 81 mg PO DAILY atorvastatin 80 mg PO DAILY blood sugar diagnostic (FreeStyle Lite Strips) As directed colchicine 0.6 mg PO DAILY dulaglutide (Trulicity) 4.5 mg (0.5 mL) subcut QWEEK empagliflozin (Jardiance) 25 mg PO DAILY furosemide 40 mg (2 x 20 mg) PO DAILY 90 days glucosamine sulfate 1,000 mg PO BID ibuprofen 800 mg PO Q8H PRN lancets (FreeStyle Lancets) As directed Lantus Solostar U-100 Insulin (insulin glargine) 40 units (0.4 mL) subcut DAILY NS metoprolol tartrate 25 mg PO BID nitroglycerin 0.3 mg sublingual Q5M PRN Tobacco use date assessed: 11/12/24 Fall risk assessment: No Falls in past year Last assessed Fall Risk: 11/12/24 Dental Screening Dental Screen Date: 11/12/24 Did you have a dental visit in the last 12 months?: No Did you have a dental problem in the last 6 months where you did not have access to dental care?: No Was dental information given to patient?: Patient has dentist HPI HPI Comments History of Present Illness Details 74 y/o M with obesity and gout here today w/ c/o L knee pain that started last Reports in normal state of health and the L knee started to hurt and swell. The pain is intermittent, located in the front of the knee Has some mild redness that comes and goes. Swelling in BLE is baseline HX of gout but denies the sx feeling like this HX of R knee surgery for reasons that started off like the L knee is feeling right now This was done by Dr Armijo @ [facility] Taking Ibuprofen which helps his pain. On Tuesday his knee was 100% Today pain is mild. Walks w/ a cane at baseline. Denies fever, chills,trauma, new numbness, tingling, hx of blood clots. Exam Awake alert NAD LLE Neurovasc intact, skin hairless, intact. +1 edema BLE. FROM L knee. No erythema or warmth. No crepitus w/ active or passive ROM. Gaurded but normal gait w/o cane. Plan Xrays Refer to Dr Armijo Supportive care [facility] on reasons to RTO Total time spent caring for the patient today was 30 minutes. This includes time spent before the visit reviewing the chart, time spent during the visit, and time spent after the visit on documentation, reviewing laboratory results, diagnostic imaging, medications, performing a medically necessary evaluation, counseling on diagnoses, care coordination, ordering appropriate tests, ordering appropriate medications, review of tests performed by other providers, reporting test results with the patient, communication with other healthcare providers. [facility] Surgical History History of knee replacement procedure of right knee Family History Maternal Grandfather Cardiovascular disease Maternal Grandmother Diabetes Hypercholesteremia Social History Housing: [place] Patient Tobacco Use Status: Former Tobacco user e-Cigarette/Vaping Use: Never Used Second Hand Smoke Exposure: No service: Yes Current occupational status: retired Cognitive needs: No Hearing needs: Yes ( states he needs hearing aids) Vision needs: Yes (glasses) Questionnaire PHQ-9 Over the last 2 weeks, how often have you been bothered by any of the following problems? 1. Little interest or pleasure in doing things: not at all 2. Feeling down, depressed, or hopeless: not at all 3. Trouble falling or staying asleep, or sleeping too much: not at all 4. Feeling tired or having little energy: not at all 5. Poor appetite or overeating: not at all 6. Feeling bad about yourself - or that you are a failure or have let yourself or your family down: not at all 7. Trouble concentrating on things, such as reading the newspaper or watching television: not at all 8. Moving or speaking so slowly that other people could have noticed. Or the opposite - being so fidgety or restless that you have been moving around a lot more than usual: not at all 9. Thoughts that you would be better off or of hurting yourself in some way: not at all Total score: 0 Depression Screening Interpretation: Negative Depression Screening Done: Yes 31766 - PHQ-9 Billing: Yes Source: Developed by Drs. Gary Davidson, Mary Moe, Chris Johnson and colleagues, with an educational jayesh from [employer]. Thrive Questionnaire Date Thrive assessed: 11/12/24 I am a: Patient What is your living situation today?: I have a steady place to live Within the past 12 months, did the food you bought not last and you didn't have the money to get more?: Never true Within the past 12 months, did you worry whether your food would run out before you got money to buy more?: Never true Do you have trouble paying for medicines?: No Do you have trouble getting transportation to medical appointments?: No Do you have trouble paying your heating and electricity bill?: No Do you have trouble taking care of your child, family member or friend?: No Do you have trouble with day-to-day activities such as bathing, preparing meals, shopping, managing finances, etc.?: No Are you currently unemployed and looking for a job?: I choose not to answer this question Are you interested in more education?: No Please select the resources that you would like help with: None Currently or been in a relationship where the following occur: No concerns reported THRIVE Score: 0 JOELLE-7 AMB Questionnaire JOELLE-7 Date JOELLE - 7 assessed: 11/12/24 Feeling nervous, anxious, or on edge: 0 = Not at all Not being able to stop or control worryin = Not at all Worrying too much about different things: 0 = Not at all Trouble relaxin = Not at all Being so restless that it is hard to sit still: 0 = Not at all Becoming easily annoyed or irritable: 0 = Not at all Feeling afraid as if something awful might happen: 0 = Not at all Total JOELLE-7 score (0-4 normal; 5-9 mild; 10-14 moderate; 15-21 severe): 0 Source: Developed by Drs. Gary Davidson, Mary Moe, Chris Johnson and colleagues, with an educational jayesh from [employer]. JOELLE-7 Assessment Billing JOELLE-7 Assessment Tool: JOELLE-7 Assessment 90825 Physical exam (Primary Care) Vital Signs: Last Vital Signs Temp 97.6 F 11/12/24 13:00 Pulse 78 11/12/24 13:00 Resp 13 11/12/24 13:00 BP 134/74 11/12/24 13:00 Pulse Ox 97 11/12/24 13:00 Oxygen Delivery Method Room Air 11/12/24 13:00 BMI result Body Mass Index 39.5 BMI Assessment/Plan discussion: High BMI High, discussed plan: lifestyle Tobacco/Smoking Status: Tobacco use Status Tobacco use date assessed 11/12/24 11/12/24 12:57 Patient Tobacco Use Status Former Tobacco user 11/12/24 12:53 e-Cigarette/Vaping Use Never Used 11/12/24 12:53 PHQ-9: PHQ-9 Score PHQ-9: Total score 0 11/12/24 12:54 Depression Screening Interpretation: Negative Thrive Assessment: Date of Thrive Assessment Date Thrive assessed 11/12/24 11/12/24 12:54 Currently or been in a relationship where the following occur: No concerns reported Coding Level of Care Code Est Pt Level 4 (21303) Complex EM visit Add On G2211 Diagnoses Pain and swelling of left knee M25.562; M25.462 Idiopathic gout, unspecified chronicity, unspecified site M10.00 Gout site: unspecified site Gout etiology: idiopathic Chronicity: unspecified Morbid obesity E66.01 Additional Codes JOELLE-7 Assessment Billing - JOELLE-7 Assessment Tool: JOELLE-7 Assessment 23766 ([id number]) PHQ-9 - 66633 - PHQ-9 Billing: Yes ([id number]) Assessment & Plan Assessment & Plan (1) Pain and swelling of left knee: Code(s): M25.562 - Pain in left knee; M25.462 - Effusion, left knee Category: Medical (2) Gout: Code(s): M10.9 - Gout, unspecified Category: Medical Qualifiers: Gout site: unspecified site Gout etiology: idiopathic Chronicity: unspecified Qualified Code(s): M10.00 - Idiopathic gout, unspecified site (3) Morbid obesity: Comment: Recommend 30 minutes cardiovascular exercise at least 5 times weekly, continue GLP, decrease calories Code(s): E66.01 - Morbid (severe) obesity due to excess calories Category: Medical Plan . Orders: Orders XR knee LT 4V Today ELAYNE Alvarado M25.462 - Effusion, left knee, M25.562 - Pain in left knee Referrals Orthopedics Referral ELAYNE Alvarado M25.462 - Effusion, left knee, M25.562 - Pain in left knee Medications: Changed From metoprolol tartrate 50 mg PO BID 180 tabs 3RF To metoprolol tartrate 25 mg PO BID Mandy Mcpherson MD
[2024-11-12 13:00] VITALS: BP 134/74; PULSE 78; RESP 13; TEMP 36.4; O2SAT 97; BMI 39.5
--- OUTSIDE RECORDS SUMMARY | 2024-11-12 14:45 | XMS_ITS | Clinical Summary ---
Author Organization [facility] Address [address] [place] [address] Care Team Providers Care Door Paneler Name Role Phone Mandy Mcpherson MD Primary Care Provider [phone] Allergies Active Allergy Reactions Criticality Noted Date [...] age to complete this topic Care Teams Door Paneler Relationship Specialty Start Date End Date Mandy Mcpherson MD PCP - General Internal Medicine 11/06/18
--- OUTSIDE RECORDS SUMMARY | 2024-11-12 14:45 | XMS_ITS | Continuity of Care Document ---
Author Organization [facility]. If a dditional information is needed, contact Health Information Management at [phone] Address [address] [place] [address] Phone Care Team Providers Care Studio Musician Name Role Phone Unavailable Unavailable Unavailable Unavailable Unavailable Unavailable Unavailable Unavailable Problems Pyoderma Onset:23-Oct-2015 [facility] Cellulitis Onset:23-Oct-2015 [facility] Mental Status Cognitive function finding 24-Oct-2015 [...]
== END 2024-11-12 13:23 | disposition home or self-care (01) ==
LOC: HO.HMCFM 12:53
PROVIDERS: PCP Internal Medicine; Visit Provider Nurse Practitioner Family
DX: M25.562 Pain in left knee (principal); E66.01 Morbid (severe) obesity due to excess calories; Z68.39 Body mass index [BMI] 39.0-39.9, adult; M25.462 Effusion, left knee; M10.00 Idiopathic gout, unspecified site

== ENCOUNTER 2024-11-12 12:45 | Outpatient (REF) | payer OTHER, SELFPAY ==
--- NOTE | ~2024-11-12 | XR_ITS ---
EXAMINATION: XR KNEE 4 OR MORE VIEWS LEFT HISTORY: M25.562 - Pain in left knee COMPARISON: There are no prior studies available for comparison. FINDINGS: Four views of the left knee are submitted. Osseous mineralization is normal. There is no fracture or dislocation. There is moderate osteoarthritis of the medial and patellofemoral compartments, with joint space narrowing and osteophyte formation. There are is vascular calcification. There is no joint effusion. XR/XR knee LT 4V IMPRESSION: Moderate osteoarthritis of the medial and patellofemoral compartments. Electronically signed by: Gary Lr MD 11/14/2024 08:40 AM EDT
--- OUTSIDE RECORDS SUMMARY | 2024-11-12 16:29 | XMS_ITS | Clinical Summary ---
Author Organization [facility] Address [address] [place] [address] Care Team Providers Care Community Relations Liaison Name Role Phone Mandy Mcpherson MD Primary Care Provider [phone] Allergies Active Allergy Reactions Criticality Noted Date [...] age to complete this topic Care Teams Community Relations Liaison Relationship Specialty Start Date End Date Mandy Mcpherson MD PCP - General Internal Medicine 11/06/18
== END 2024-11-12 12:46 | disposition home or self-care (01) ==
LOC: HO.HMGCX 12:45
PROVIDERS: PCP Internal Medicine; Visit Provider Nurse Practitioner Family
DX: M25.562 Pain in left knee (principal); M10.00 Idiopathic gout, unspecified site; E66.01 Morbid (severe) obesity due to excess calories; Z68.39 Body mass index [BMI] 39.0-39.9, adult; M17.12 Unilateral primary osteoarthritis, left knee; I70.202 Unspecified atherosclerosis of native arteries of extremities, left leg; Z79.82 Long term (current) use of aspirin; Z79.899 Other long term (current) drug therapy
CPT/HCPCS: 73564; 96127; 99212

== ENCOUNTER → 2024-11-12 14:12 | Outpatient (BNV) | payer OTHER, SELFPAY | PROVIDERS: PCP Internal Medicine; Visit Provider Radiology Diagnostic Radiology | DX: M17.12 Unilateral primary osteoarthritis, left knee (principal); M22.2X2 Patellofemoral disorders, left knee | CPT/HCPCS: 73564 ==

== ENCOUNTER 2024-11-29 11:48 | Outpatient (AMB) | payer OTHER, SELFPAY ==
--- NOTE | 2024-11-29 12:06 | A.OFFPC_ITS ---
Vital Signs 11/29/24 12:14 Height 5 ft 6.3 in Weight 246 lb 6 oz BMI 39.4 BP 110/64 Blood Pressure Location Rt brachial Position Sitting Respiration 14 Pulse 85 Pulse Source Pulse Oximeter Temp 97.9 F Temp Source Temporal Artery Scan Pulse Oximetry (%) 97 Oxygen Delivery Method Room Air Oxygen Flow Rate 97.9 Intake Visit Reasons: pre op for [facility] Intake Note: Je presents in the office today for a pre-op to cataract surgery. Allergies Opioids - Morphine Analogues Allergy (Unknown, Verified 11/29/24 12:09) Rash Tobacco use date assessed: 11/29/24 Fall risk assessment: No Falls in past year Last assessed Fall Risk: 11/29/24 Dental Screening Dental Screen Date: 11/29/24 Did you have a dental visit in the last 12 months?: Yes Did you have a dental problem in the last 6 months where you did not have access to dental care?: No Was dental information given to patient?: Patient has dentist HPI HPI Comments History of Present Illness Details This is a 74-year-old male with a past medical history of CAD, diastolic heart failure, osteoarthritis, GERD, hepatic steatosis, MRSA, type 2 diabetes and coronary artery disease presenting for a preoperative exam. Patient is scheduled for cataract surgery at [facility] on 12/19/2024 and 01/02/2025. Patient has type 2 diabetes. His hemoglobin A1c is 7.9% 10/08/2024. He is on 40 units of Lantus daily, Jardiance 25 mg daily, Trulicity 4.5 mg daily Hyperlipidemia is treated with atorvastatin 80 mg daily. Follows with Dr Faulkner. CAD s/p PCI LAD 2005 and ANASTASIA to OM 2008 then CABG x 4 ~04/2016. On ASA, lopressor, lasix, and NTG prn. Patient currently has an event monitor which he says is due to episodes of low blood pressure. Denies low heart rate, palpitations, chest pain or shortness of breath. His blood pressure today is 110/64. He denies recent infections, past issues with anesthesia, chronic lung disease. Denies history of blood clots or clotting disorders. Former tobacco use. Patient can walk upstairs and does housework. ROS: Constitutional: No unexplained weight loss, fever, chills, fatigue or night sweats. Eyes: No vision changes, blurry vision, double vision, eye pain, eye redness, eye discharge. ENT: No hearing loss, sneezing, congestion, runny nose or sore throat. Respiratory: No shortness of breath, cough or sputum production. Cardiovascular: No chest pain, chest pressure or chest discomfort. No palpitations or pedal edema. Gastrointestinal: No anorexia, nausea, vomiting or diarrhea. No abdominal pain Genitourinary: No dysuria, hematuria, urinary frequency. Neurologic: No headache, dizziness, syncope Endocrine: No cold or heat intolerance. No polyuria or polydipsia. Physical exam: Constitutional: Alert, in no distress. Eyes: Pupils are equal, round and reactive to light. Extraocular muscles intact. Ear, Nose and Throat: Canals clear. TMs normal. Normal nasal mucosa. No nasal discharge. No oral lesions. Neck: Supple, Full range of motion. No lymphadenopathy. No palpable thyroid masses. Respiratory: Clear to auscultation. Cardiovascular: S1 S2 regular. No murmurs. Gastrointestinal: Abdomen soft, non-tender, non-distended. Normal bowel sounds. Neurologic: No focal neurological deficits Extremities: Warm and well perfused. No clubbing, cyanosis or edema. Psychiatric: Normal mood and affect [facility] Medical History (Updated 11/30/24 @ 14:48 by NAOMY Cortez) Hypotension Pre-op evaluation Surgical History History of knee replacement procedure of right knee Family History (Updated 11/29/24 @ 12:13 by Krysta Estrada MA) Maternal Grandfather Cardiovascular disease Maternal Grandmother Diabetes Hypercholesteremia Social History (Updated 11/29/24 @ 12:13 by Krysta Estrada MA) Housing: House Alcohol intake: current Patient Tobacco Use Status: Former Tobacco user e-Cigarette/Vaping Use: Never Used Second Hand Smoke Exposure: No Use of substances other than those prescribed or required for medical reasons: No service: Yes Current occupational status: retired Cognitive needs: No Hearing needs: Yes ( states he needs hearing aids) Vision needs: Yes (glasses) Questionnaire Thrive Questionnaire Date Thrive assessed: 11/29/24 I am a: Patient What is your living situation today?: I have a steady place to live Within the past 12 months, did the food you bought not last and you didn't have the money to get more?: Never true Within the past 12 months, did you worry whether your food would run out before you got money to buy more?: Never true Do you have trouble paying for medicines?: No Do you have trouble getting transportation to medical appointments?: No Do you have trouble paying your heating and electricity bill?: No Do you have trouble taking care of your child, family member or friend?: No Do you have trouble with day-to-day activities such as bathing, preparing meals, shopping, managing finances, etc.?: No Are you currently unemployed and looking for a job?: I choose not to answer this question Are you interested in more education?: No Please select the resources that you would like help with: None Currently or been in a relationship where the following occur: No concerns reported THRIVE Score: 0 AUDIT C Alcohol Use Questionnaire (AUDIT-C) 1. How often do you have a drink containing alcohol?: Monthly or less 2. How many drinks containing alcohol do you have on a typical day when you are drinking?: 1 or 2 3. How often do you have six or more drinks on one occasion?: Never Total Score: 1 Score Reviewed/Action Taken: No JOELLE-7 AMB Questionnaire JOELLE-7 Date JOELLE - 7 assessed: 11/29/24 Source: Developed by Drs. Gary Davidson, Mary Moe, Chris Johnson and colleagues, with an educational jayesh from [employer]. Physical exam (Primary Care) Vital Signs: Last Vital Signs Temp 97.9 F 11/29/24 12:14 Pulse 85 11/29/24 12:14 Resp 14 11/29/24 12:14 BP 110/64 11/29/24 12:14 Pulse Ox 97 11/29/24 12:14 Oxygen Delivery Method Room Air 11/29/24 12:14 Oxygen Flow Rate 97.9 11/29/24 12:14 BMI result Body Mass Index 39.4 Tobacco/Smoking Status: Tobacco use Status Tobacco use date assessed 11/29/24 11/29/24 12:17 Patient Tobacco Use Status Former Tobacco user 11/29/24 12:13 e-Cigarette/Vaping Use Never Used 11/29/24 12:13 Thrive Assessment: Date of Thrive Assessment Date Thrive assessed 11/29/24 11/29/24 12:17 Currently or been in a relationship where the following occur: No concerns reported Results Reviewed Results Reviewed: Laboratory Tests 02/13/24 10/08/24 09:40 14:17 WBC 6.1 Hgb 16.1 Hct 46.6 MCV 88.8 Plt Count 172 Creatinine 1.24 Estimated GFR 57 Hgb A1c (Clinic) 7.9 H AST 32 ALT 31 Triglycerides 339 H Cholesterol 116 LDL Cholesterol, Calc 16 HDL Cholesterol 33 L Coding Level of Care Code Est Pt Level 4 (02803) Complex EM visit Add On G2211 Diagnoses Pre-op evaluation Z01.818 Coronary artery disease involving coronary bypass graft of [place] heart without angina pectoris I25.810 Coronary Disease-Associated Artery/Lesion type: bypass graft [place] vs. transplanted heart: [place] heart Associated angina: without angina Type 2 diabetes mellitus with hyperglycemia, with long-term current use of insulin E11.65; Z79.4 Hypotension I95.9 Assessment & Plan Assessment & Plan (1) Pre-op evaluation: Code(s): Z01.818 - Encounter for other preprocedural examination Category: Medical (2) CAD (coronary artery disease): Code(s): I25.10 - Atherosclerotic heart disease of [place] coronary artery without angina pectoris Category: Medical Qualifiers: Coronary Disease-Associated Artery/Lesion type: bypass graft [place] vs. transplanted heart: [place] heart Associated angina: without angina Qualified Code(s): I25.810 - Atherosclerosis of coronary artery bypass graft(s) without angina pectoris (3) Type 2 diabetes mellitus with hyperglycemia, with long-term current use of insulin: Code(s): E11.65 - Type 2 diabetes mellitus with hyperglycemia; Z79.4 - nursing home (current) use of insulin Category: Medical (4) Hypotension: Code(s): I95.9 - Hypotension, unspecified Category: Medical Plan In summary this is a 74-year-old male with type 2 diabetes, coronary artery disease, hypertension and hyperlipidemia with above-average risk for this low risk procedure. METS score at least 4. We will reach out to his director food safety's office to make sure he can proceed with surgery before results of the cardiac monitoring are completed. Type 2 diabetes is suboptimally controlled, but with his hemoglobin A1c at 7.9% this does not pose a high risk for surgical complications or preclude surgery. Patient was instructed to continue all of his medications and follow up with PCP for routine visits.
[2024-11-29 12:14] VITALS: BP 110/64; PULSE 85; RESP 14; TEMP 36.6; O2SAT 97; BMI 39.4
== END 2024-11-29 12:46 | disposition home or self-care (01) ==
LOC: HO.HMCFM 11:49
PROVIDERS: PCP Internal Medicine; Visit Provider Physician Assistant Medical
DX: Z01.818 Encounter for other preprocedural examination (principal); I25.810 Atherosclerosis of coronary artery bypass graft(s) without angina pectoris; E11.65 Type 2 diabetes mellitus with hyperglycemia; Z79.4 Long term (current) use of insulin; I95.9 Hypotension, unspecified

== ENCOUNTER → 2024-11-29 11:48 | Outpatient (BNVA) | payer OTHER, SELFPAY | PROVIDERS: PCP Internal Medicine; Visit Provider Physician Assistant Medical | DX: Z01.818 Encounter for other preprocedural examination (principal); I25.810 Atherosclerosis of coronary artery bypass graft(s) without angina pectoris; I50.30 Unspecified diastolic (congestive) heart failure; M19.90 Unspecified osteoarthritis, unspecified site; K21.9 Gastro-esophageal reflux disease without esophagitis; E11.65 Type 2 diabetes mellitus with hyperglycemia; I95.9 Hypotension, unspecified; Z79.4 Long term (current) use of insulin | CPT/HCPCS: 96127; 99212 ==

== ENCOUNTER 2025-01-09 09:19 | Outpatient (REF) | payer OTHER, SELFPAY ==
--- OUTSIDE RECORDS SUMMARY | 2025-01-09 10:00 | XMS_ITS | Encounter Summary ---
Author Organization [facility] Address [address] [place] [address] Care Team Providers Care Ammonium Sulfate Operator Name Role Phone Rudy Hebert MD Primary Care Provider Unavail Mandy Pelaez MD Primary Care Provider UnavailKelli Canales MD Primary Care Provider Chandana Brennan Primary Care Provider [phone] [facility], Pcp Primary Care Provider Unavailharman Encounter Details Date Type Department Care Team Description 01/15/2009 Hospital Medical Records [address] [place] [address] Carmen Prince PA-C [address] [place] [address] Social History Tobacco Use Types Packs/Day Years Used Date Smoking Tobacco: Former Cigarettes 2 Q uit: 08/01/1976 Pipe Cigars Smokeless Tobacco: Former Chew Comments:Pipe twice daily & Cigars occ, Chew 2 tins daily Alcohol Use Standard Drinks/Week Comments Yes 0 (1 standard drink = 0.6 oz pur e alcohol) less than 1/month Sex Assigned at Date Recorded Not on file Job Start Date Occupation Industry Not on file Not on file Not on file documented as of this encounter Plan of Treatment Not on file documented as of this encounter Visit Diagnoses Not on filedocumented in this encounter Care Teams Ammonium Sulfate Operator Relationship Specialty Start Date End Date Rudy Hebert MD PCP - General 05/14/05 05/29/15 Mandy Smith MD PCP - General Internal Medicine 05/30/15 09/21/20 Kelli Cerda MD PCP - General Internal Medicine 09/22/20 01/04/22 Chandana Mohamud [address] [place] [address] PCP - General Internal Medicine 01/05/22 08/23/22 [facility], Pcp [address] [place] [id number] PCP - General Internal Medicine 08/24/22 documented as of this encounter
[2025-01-09 11:26] LABS: MANUAL DIFF FLAG NO
[2025-01-09 11:38] LABS: Basophils Percent Auto 0.5 % (0-2); Eosinophils Absolute Auto 0.1 X10*3/uL (0.0-0.4); Eosinophils Percent Auto 2.3 % (0-4); Hematocrit 47.6 % (42.0-52.0); Hemoglobin 15.8 g/dl (14.0-18.0); Imm Gran Abs Auto 0.02 X10*3/uL (0.00-0.03); Imm Gran Pct Auto 0.3 % (0.0-0.4); Lymphocytes Absolute Auto 1.3 X10*3/uL (1.2-4.9); Lymphocytes Percent Auto 21.8 % (20-40); Mean Corpuscular HGB Conc 33.2 g/dl (31.0-36.0); Mean Corpuscular Hemoglobin 29.6 pg (27.0-33.0); Mean Corpuscular Volume 89.3 fL (80.0-98.0); Monocytes Absolute Auto 0.5 X10*3/uL (0.1-1.2); Monocytes Percent Auto 8.7 % (2-11); Neutrophils Absolute Auto 4.1 x10*3/uL (2.0-8.3); Neutrophils Percent Auto 66.4 % (45-73); Platelet Count 175 X10*3/uL (160-400); Red Blood Count 5.33 X10*6/uL (4.60-5.80); Red Cell Distribution Width 13.5 % (11.0-16.0); White Blood Count 6.1 X10*3/uL (4.8-10.8)
[2025-01-09 11:49] LABS: Estimated Average Glucose 180 mg/dL; Hemoglobin A1c % 7.9 % (<6.0)
[2025-01-09 11:54] LABS: Alanine Aminotransferase 30 U/L (0-40); Albumin Level 4.1 g/dL (3.5-5.0); Alkaline Phosphatase 80 U/L (39-117); Anion Gap 13 (12-20); Aspartate Amino Transferase 37 U/L (5-37); Bilirubin Total 0.6 mg/dL (0.0-1.0); Blood Urea Nitrogen 21 mg/dL (9-16); Calcium 9.4 mg/dL (8.4-10.2); Carbon Dioxide 23 mmol/L (22-29); Chloride 107 mmol/L (96-108); Cholesterol 143 mg/dL (<200); Estimated Glomerular Filt Rate 51; Glucose Random 140 mg/dL (60-115); HDL Cholesterol 33 mg/dL (>40); LDL Cholesterol Calculated 53 mg/dL (<100); Potassium 3.7 mmol/L (3.3-5.1); Sodium 139 mmol/L (135-145); Total Protein 6.7 g/dL (6.5-8.0); Triglycerides 287 mg/dL (<150)
== END 2025-01-09 09:20 | disposition home or self-care (01) ==
LOC: HO.WFDLDS 09:19
PROVIDERS: Visit Provider Internal Medicine
DX: I50.32 Chronic diastolic (congestive) heart failure (principal); E11.65 Type 2 diabetes mellitus with hyperglycemia; Z79.4 Long term (current) use of insulin; I25.810 Atherosclerosis of coronary artery bypass graft(s) without angina pectoris; D69.2 Other nonthrombocytopenic purpura
CPT/HCPCS: 80053; 80061; 83036; 85025

== ENCOUNTER 2025-01-14 08:57 | Outpatient (AMB) | payer OTHER, SELFPAY ==
--- NOTE | 2025-01-14 09:07 | MHC.PC.OV ---
Vital Signs 01/14/25 09:11 Height 5 ft 6.3 in Weight 247 lb 4 oz BMI 39.5 BP 118/80 Blood Pressure Location Lt brachial Position Sitting Respiration 14 Pulse 83 Pulse Source Pulse Oximeter Pulse Oximetry (%) 96 Oxygen Delivery Method Room Air Intake Visit Reasons: f/up diabetes Intake Note: Follow up diabetes Patient Relations Liaison Required: No Allergies Opioids - Morphine Analogues Allergy (Unknown, Verified 01/14/25 09:07) Rash Tobacco use date assessed: 11/29/24 Dental Screening Dental Screen Date: 11/29/24 HPI HPI Comments History of Present Illness Details The patient is a 74 year old male with a past medical history of type 2 diabetes, insulin use, CAD, dCHF, hypertension, hyperlpidemia, GERD, OA, MRSA, obesity, gout presenting for follow up Cataract surgery was uncomplicated. Endocrine: Type 2 insulin dependent diabetes. On lantus 48 units, trulicity, jardiance. A1C 7.9% up from 5.7% 06/01/24, from 7.6%. UTD for eye exam-Dr Poole, [facility]. No podiatry. ED-failed viagra, prn cilais in the past. Reports dietary non compliance, less physical actiity since last visit CV: Follows with Dr Faulkner. CAD s/p PCI LAD 2005 and ANASTASIA to OM 2008 then CABG x 4 ~04/2016. On ASA, lipitor, lopressor, lasix, and NTG prn. Off lisinopril. Patient had recent fairly reassuring stress test and echocardiogram. He did not hear back with results from his holter monitor MSK: Stable right sided sciatica. History of colon polyp. Last colonoscopy 2014-advised 10 year repeat-referral was placed. ROS see HPI PHYSICAL EXAM: GENERAL: Alert and oriented x 3. NAD EYES: EOMI. Anicteric. HENT: Moist mucous membranes. No scleral icterus. No cervical lymphadenopathy. LUNGS: scattered left anterior wheeze CARDIOVASCULAR: Regular rate and rhythm. No murmur. No JVD. ABDOMEN: Soft, non-tender +bs EXTREMITIES: No edema. Non-tender. SKIN: No rashes or lesions. Warm. NEUROLOGIC: No focal neurological deficits. CN II-XII grossly intact PSYCHIATRIC: Cooperative. Appropriate mood and affect [facility] Medical History Hypotension Pre-op evaluation Surgical History History of knee replacement procedure of right knee Family History Maternal Grandfather Cardiovascular disease Maternal Grandmother Diabetes Hypercholesteremia Social History Housing: House Alcohol intake: current Patient Tobacco Use Status: Former Tobacco user e-Cigarette/Vaping Use: Never Used Second Hand Smoke Exposure: No service: Yes Current occupational status: retired Cognitive needs: No Hearing needs: Yes ( states he needs hearing aids) Vision needs: Yes (glasses) Questionnaire Thrive Questionnaire Date Thrive assessed: 11/29/24 I am a: Patient What is your living situation today?: I have a steady place to live Within the past 12 months, did the food you bought not last and you didn't have the money to get more?: Never true Within the past 12 months, did you worry whether your food would run out before you got money to buy more?: Never true Do you have trouble paying for medicines?: No Do you have trouble getting transportation to medical appointments?: No Do you have trouble paying your heating and electricity bill?: No Do you have trouble taking care of your child, family member or friend?: No Do you have trouble with day-to-day activities such as bathing, preparing meals, shopping, managing finances, etc.?: No Are you currently unemployed and looking for a job?: I choose not to answer this question Are you interested in more education?: No Please select the resources that you would like help with: None Currently or been in a relationship where the following occur: No concerns reported THRIVE Score: 0 JOELLE-7 AMB Questionnaire JOELLE-7 Date JOELLE - 7 assessed: 11/29/24 Source: Developed by Drs. Gary Davidson, Mary Moe, Chris Johnson and colleagues, with an educational jayesh from [employer] Physical exam (Primary Care) Vital Signs: Last Vital Signs Pulse 83 01/14/25 09:11 Resp 14 01/14/25 09:11 BP 118/80 01/14/25 09:11 Pulse Ox 96 01/14/25 09:11 Oxygen Delivery Method Room Air 01/14/25 09:11 BMI result Body Mass Index 39.5 Tobacco/Smoking Status: Tobacco use Status Tobacco use date assessed 11/29/24 01/14/25 09:14 Patient Tobacco Use Status Former Tobacco user 01/14/25 09:14 e-Cigarette/Vaping Use Never Used 01/14/25 09:14 Thrive Assessment: Date of Thrive Assessment Date Thrive assessed 11/29/24 01/14/25 09:14 Currently or been in a relationship where the following occur: No concerns reported Coding Level of Care Code Est Pt Level 4 (85192) Complex EM visit Add On G2211 Diagnoses Chronic diastolic congestive heart failure I50.32 Heart failure chronicity: chronic Type 2 diabetes mellitus with hyperglycemia, with long-term current use of insulin E11.65; Z79.4 History of four vessel coronary artery bypass graft Z95.1 Assessment & Plan Assessment & Plan (1) Diastolic congestive heart failure: Code(s): I50.30 - Unspecified diastolic (congestive) heart failure Category: Medical Qualifiers: Heart failure chronicity: chronic Qualified Code(s): I50.32 - Chronic diastolic (congestive) heart failure (2) Type 2 diabetes mellitus with hyperglycemia, with long-term current use of insulin: Code(s): E11.65 - Type 2 diabetes mellitus with hyperglycemia; Z79.4 - terminal computer operator (current) use of insulin Category: Medical (3) History of four vessel coronary artery bypass graft: Code(s): Z95.1 - Presence of aortocoronary bypass graft Category: Surgical Plan 74 year old male presenting for follow up DM-suboptimal control. Hesitant but finally agreeable to increasing trulicity CAD-stable on current medications. continue follow up cardiology Return in 3 months or sooner as needed Orders: Orders Complete Blood Count Auto Diff Today E11.65 - Type 2 diabetes mellitus with hyperglycemia, I25.810 - Atherosclerosis of coronary artery bypass graft(s) without angina pectoris, K21.9 - Gastro-esophageal reflux disease without esophagitis, Z79.4 - terminal computer operator (current) use of insulin, Z95.1 - Presence of aortocoronary bypass graft Prostate Specific Antigen Today E11.65 - Type 2 diabetes mellitus with hyperglycemia, I25.810 - Atherosclerosis of coronary artery bypass graft(s) without angina pectoris, K21.9 - Gastro-esophageal reflux disease without esophagitis, Z79.4 - [facility] (current) use of insulin, Z95.1 - Presence of aortocoronary bypass graft Hemoglobin A1c Today E11.65 - Type 2 diabetes mellitus with hyperglycemia, I25.810 - Atherosclerosis of coronary artery bypass graft(s) without angina pectoris, K21.9 - Gastro-esophageal reflux disease without esophagitis, Z79.4 - terminal computer operator (current) use of insulin, Z95.1 - Presence of aortocoronary bypass graft Comprehensive Met. Panel Today E11.65 - Type 2 diabetes mellitus with hyperglycemia, I25.810 - Atherosclerosis of coronary artery bypass graft(s) without angina pectoris, K21.9 - Gastro-esophageal reflux disease without esophagitis, Z79.4 - terminal computer operator (current) use of insulin, Z95.1 - Presence of aortocoronary bypass graft Medications: New Trulicity (dulaglutide) 1.5 mg (0.5 mL) subcut QWEEK 6 mL 3RF NS FreeStyle Lou 3 Plus Sensor (blood-glucose sensor) every 15 days 6 ea 3RF NS E11.65 - Type 2 diabetes mellitus with hyperglycemia, Z79.4 - terminal computer operator (current) use of insulin FreeStyle Lou 3 [place] (blood-glucose,filing and polishing supervisor,cont) As directed 1 ea 0RF NS E11.65 - Type 2 diabetes mellitus with hyperglycemia, Z79.4 - terminal computer operator (current) use of insulin
[2025-01-14 09:11] VITALS: BP 118/80; PULSE 83; RESP 14; O2SAT 96; BMI 39.5
== END 2025-01-14 09:34 | disposition home or self-care (01) ==
LOC: HO.HMCFM 08:57
PROVIDERS: PCP Internal Medicine; Visit Provider Internal Medicine
DX: I50.32 Chronic diastolic (congestive) heart failure (principal); E11.65 Type 2 diabetes mellitus with hyperglycemia; Z79.4 Long term (current) use of insulin; Z95.1 Presence of aortocoronary bypass graft

== ENCOUNTER → 2025-01-14 08:57 | Outpatient (BNVA) | payer OTHER, SELFPAY | PROVIDERS: PCP Internal Medicine; Visit Provider Internal Medicine | DX: E11.65 Type 2 diabetes mellitus with hyperglycemia (principal); I11.0 Hypertensive heart disease with heart failure; I50.32 Chronic diastolic (congestive) heart failure; I25.10 Atherosclerotic heart disease of native coronary artery without angina pectoris; E78.5 Hyperlipidemia, unspecified; E66.9 Obesity, unspecified; Z68.39 Body mass index [BMI] 39.0-39.9, adult; M10.9 Gout, unspecified; Z79.4 Long term (current) use of insulin; Z95.1 Presence of aortocoronary bypass graft | CPT/HCPCS: 99212 ==

== ENCOUNTER 2025-03-04 09:46 | Outpatient (AMB) | payer OTHER, SELFPAY ==
--- OUTSIDE RECORDS SUMMARY | 2025-03-04 10:20 | XMS_ITS | Continuity of Care Document ---
Author Organization [facility]. If a dditional information is needed, contact Health Information Management at [phone] Address [address] [place] [address] Phone Care Team Providers Care Certified Physical Therapist Assistant Name Role Phone Unavailable Unavailable Unavailable Unavailable Unavailable Unavailable Unavailable Unavailable Problems Pyoderma Onset:23-Oct-2015 [facility] Cellulitis Onset:23-Oct-2015 [facility] Mental Status Cognitive function finding 24-Oct-2015 Cognitive [...]
--- NOTE | 2025-03-04 10:22 | AM.OFFVISNUR ---
Intake Visit Reasons: Tetanus Vaccination Request Allergies Opioids - Morphine Analogues Allergy (Unknown, Verified 01/14/25 09:07) Rash Immunizations Boostrix Tdap 2.5 Lf unit-8 mcg-5 Lf/0.5 mL intramuscular syringe Performing Provider: Mandy Mcpherson MD Performing Location[place] [facility] [place] [facility] Administered by: Dorcas Varner RN on 03/04/25 10:22 Dose Route Admin Location Dispensed Lot Number Expiration Date [facility] Junior Mechanical Engineer 0.5 mL IM Left Deltoid 0.5 mL [id number] 09/21/26 22140-241-20 [employer] Total Dispensed Waste 0.5 mL 0 % VIS Given Date VIS Provided VIS Publication Date 03/04/25 Single Vaccine 21 Eligibility Eligibility Date Funding Source Not [facility] Eligible 03/04/25 Private Assessment & Plan Assessment & Plan Orders: Orders TDaP Immunization Today Z23 - Encounter for immunization Coding
--- OUTSIDE RECORDS SUMMARY | 2025-03-04 10:22 | XMS_ITS | Encounter Summary ---
Author Organization [facility] Address [address] [facility] [address] [place] [address] Phone Care Team Providers Care Special Programs Director Name Role Phone Mandy Smith MD Primary Care Provider Encounter Details Date Type Department Care Team (Late st Contact Info) Description 10/31/2024 Procedure Pass Echo [facility] [place] [place] [address] Social History Tobacco Use Types Packs/Day Years Used Date Smoking Tobacco: Former Cigarettes Smokeless Tobacco: Former Education Answer Date Recorded Are you interested in more education? Not on sandrine e 11/26/2022 Are you concerned about learning? Not on file 11/26/2022 No 11/26/2022 No 11/26/2022 Digital Access Answer Date Recorded No 12/25/2022 No 12/25/2022 Reliable internet access at home? Not on file 12/25/2022 Device with a working camera? Not on file Sex and Gender Information Value Date Recorded Sex Assigned at Not on file Legal Sex Male 5:06 PM EDT Gender Identity Not on file Sexual Orientation Not on file documented as of this encounter Plan of Treatment Upcoming Encounters Date Type Department Care Team (Late st Contact Info) Description 07/29/2025 10:00 AM EST Office Visit [facility] [address], [address] [place] [address] Emil Faulkner DO [address] [facility] [address] [place] [id number] documented as of this encounter Visit Diagnoses Not on filedocumented in this encounter Care Teams Special Programs Director Relationship Specialty Start Date End Date Mandy Smith MD PCP - General 08/04/17 documented as of this encounter Additional Source Comments The information contained in this document represents components of the legal health record. It is not the complete legal health record.[facility]
--- OUTSIDE RECORDS SUMMARY | 2025-03-04 10:22 | XMS_ITS | Clinical Summary ---
Author Organization [facility] Address [address] [place] [address] Care Team Providers Care Bootmaker Hand Name Role Phone Mandy Mcpherson MD Primary Care Provider [phone] Allergies Active Allergy Reactions Criticality Noted Date [...] (2 - Td or Tdap) 03/11/2021 03/11/2011 RSV Adult > 60+ Yrs or (1 - 1-dose 75+ series) 2025 Influenza Vaccine (#1) 2025 9, 04/11/2018, 04/29/2017, Additional history exists Pneumococcal Vaccine Completed 11/15/2018, 04/30/2015, 09/10/2013, Additional history exists Hepatitis B Vaccines Aged Out No long er eligible based on patient's age to complete this topic RSV Ped < 20 months Aged Out No longe r eligible based on patient's age to complete this topic Care Teams Bootmaker Hand Relationship Specialty Start Date End Date Mandy Mcpherson MD PCP - General Internal Medicine 11/06/18
== END 2025-03-04 10:26 | disposition home or self-care (01) ==
LOC: HO.HMCFM 09:47
PROVIDERS: PCP Internal Medicine; Visit Provider Internal Medicine
DX: Z23 Encounter for immunization (principal)

== ENCOUNTER → 2025-03-04 09:46 | Outpatient (BNVA) | payer OTHER, SELFPAY | PROVIDERS: PCP Internal Medicine; Visit Provider Internal Medicine | DX: Z23 Encounter for immunization (principal) | CPT/HCPCS: 90471; 90715 ==

== ENCOUNTER 2025-04-13 08:08 | Outpatient (REF) | payer OTHER, SELFPAY ==
--- OUTSIDE RECORDS SUMMARY | 2025-04-13 08:12 | XMS_ITS | Clinical Summary ---
Author Organization [facility] Address [address] [place] [address] Care Team Providers Care Matcher Name Role Phone Mandy Mcpherson MD Primary Care Provider [phone] Allergies Active Allergy Reactions Criticality Noted Date [...] age to complete this topic Care Teams Matcher Relationship Specialty Start Date End Date Mandy Mcpherson MD PCP - General Internal Medicine 11/06/18
--- OUTSIDE RECORDS SUMMARY | 2025-04-13 08:12 | XMS_ITS | Encounter Summary ---
Author Organization [facility] Address [address] [facility] [address] [place] [address] Phone Care Team Providers Care Analysis Reporting Developer Name Role Phone Mandy Smith MD Primary Care Provider Encounter Details Date Type Department Care Team (Late st Contact Info) Description 08/22/2023 Procedure Pass Echo Lab [place] [place] [address] Social History Tobacco Use Types Packs/Day Years [...] Description 07/29/2025 10:00 AM EST Office Visit [facility] [address] [place] [address] Dr 3rd Floor, [address] [place] [address] Emil Faulkner DO [address] [facility] [address] [place] [phone] documented as of this encounter Visit Diagnoses Not on filedocumented in this encounter Care Teams Analysis Reporting Developer Relationship Specialty Start Date End Date Mandy Smith MD PCP - General 08/04/17 documented as of this encounter Additional Source Comments The information contained in this document represents components of the legal health record. It is not the complete legal health record.[facility]
--- OUTSIDE RECORDS SUMMARY | 2025-04-13 08:12 | XMS_ITS | Encounter Summary ---
Author Organization [facility] Address [address] [facility] [address] [place] [address] Phone Care Team Providers Care Transportation Department Head Name Role Phone Mandy Smith MD Primary Care Provider Encounter Details Date Type Department Care Team (Late st Contact Info) Description 10/31/2024 Procedure Pass Echo Lab [place] [place] [address] Social History Tobacco Use Types Packs/Day Years [...] Description 07/29/2025 10:00 AM EST Office Visit [facility] [address] Floor, [address] [place] [address] Emil Faulkner DO 22 [facility] [address] [place] [address] documented as of this encounter Visit Diagnoses Not on filedocumented in this encounter Care Teams Transportation Department Head Relationship Specialty Start Date End Date Mandy Smith MD PCP - General 08/04/17 documented as of this encounter Additional Source Comments The information contained in this document represents components of the legal health record. It is not the complete legal health record.[facility]
--- OUTSIDE RECORDS SUMMARY | 2025-04-13 08:13 | XMS_ITS | Clinical Summary ---
Author Organization [facility] Address [address] [place] [address] Phone Care Team Providers Care Poultry Cutter Name Role Phone Mandy Smith MD Primary Care Provider Allergies Active Allergy Reactions Criticality Noted Date Comments Morphine Rash Low 08/22/2023 Medications aspirin 81 MG EC tablet Take 81 mg by mouth daily. Active metoprolol tartrate (LOPRESSOR) 50 MG tablet Take 25 mg by mouth 2 (two) times a day. 2 Active furosemide (LASIX) 20 MG tablet Take 40 mg by mouth daily. 2 Active atorvastatin (LIPITOR) 80 MG tablet Take 1 tablet by mouth daily. 2 Active GLUCOSAMINE HCL ORAL Take 1,000 mg by mouth daily. Active TRULICITY 4.5 mg/0.5 mL subcutaneous injection Inject 0.5 mL under the skin. 3 Active LANTUS SOLOSTAR U-100 INSULIN 100 unit/mL (3 mL) InPn injection pen Inject under the skin. 3 Active colchicine (COLCRYS) 0.6 mg tablet See Instructions, AT THE FIRST SIGN OF A GOUT FLARE FOLLOWED BY 0.6 MG ONE HOUR LATER. THEN TAKE 0.6MG TWICE DAILY UNTIL FLARE RESOLVES, # 30 tablet, Refills 1, Maintenance, 09/23/22 12:57:00 EST, Instructions Replace Required Details, Route to Pharma... 3 Active empagliflozin (JARDIANCE) 10 mg tablet Take 10 mg by mouth. 3 Active bromfenac (BROMDAY) 0.09 % ophthalmic solution Place 1 drop into the right eye daily. 5 Active Active Problems Problem Noted Date Diagnosed Date Palpitations 12/31/2024 Assessment & Plan (12/31/2024 1:17 PM EDT): Earlier this year had a 2-hour episode of racing heart. We did get a 30-day monitor the results of which are pending. Structurally normal heart on echocardiogram. Updated nuclear stress test without any signs of ischemia. He is currently denying any symptomatic recurrence Will review 30-day monitor when results complete (HFpEF) heart failure with preserved ejection fr action 12/31/2024 Assessment & Plan (12/31/2024 1:30 PM EDT): Currently denying any symptoms concerning for CHF. He does have some chronic lower extremity swelling but is otherwise euvolemic on exam. Diuretic: Continue Lasix 40 mg daily GDMT: Continue Jardiance 10 mg daily Shortness of breath 08/22/2023 Benign essential hypertension 08/22/2023 Assessment & Plan (12/31/2024 1:14 PM EDT): Recently was having issues with symptomatic hypotension. His lisinopril has been stopped and doing much better now. Will continue current medications without change Assessment & Plan (08/30/2024 9:29 AM EST): Well-controlled on current medications which will be continued without change Assessment & Plan (02/28/2024 1:41 PM EDT): Perfectly controlled to the guidelines. Assessment & Plan (08/22/2023 7:52 AM EST): Well-controlled to the guidelines on current medical therapy Pure hypercholesterolemia 08/22/2023 Assessment & Plan (12/31/2024 1:28 PM EDT): LDL well-controlled on current doses of atorvastatin which will be continued. Triglycerides are elevated, we have previously discussed the importance of avoiding processed foods/fast food. He is getting fasting blood work through his PCP next week through [facility] Lab Results Component Value Date CHOL 110 08/22/2023 HDL 42 08/22/2023 LDL 29 (L) 08/22/2023 TRIG 197 (H) 08/22/2023 CHOLHDL 2.6 (L) 08/22/2023 Assessment & Plan (08/30/2024 9:31 AM EST): LDL is very well-controlled on current dose of atorvastatin which will be continued without change. His triglycerides however are somewhat elevated, he does not drink alcohol, his diet is not great however. We did discuss importance of avoiding things like fast foods and highly processed foods to help bring the triglycerides down. Lab Results Component Value Date CHOL 110 08/22/2023 HDL 42 08/22/2023 LDL 29 (L) 08/22/2023 TRIG 197 (H) 08/22/2023 CHOLHDL 2.6 (L) 08/22/2023 Assessment & Plan (02/28/2024 1:42 PM EDT): LDL is aggressively controlled Assessment & Plan (08/22/2023 7:52 AM EST): I will get this tested along with an A1c and a basic metabolic panel A1c should be less than 7 he says that the last time that this was checked about 9 months ago it was like 7.[address] coronary artery bypass grafting 08/22/2023 Assessment & Plan (12/31/2024 1:15 PM EDT): Denying any symptoms concerning for angina. We just updated his nuclear stress test on 10/18/2024 and this was normal. Continue aspirin 81 mg daily Continue atorvastatin 80 mg daily He is due for fasting blood work through his PCP, will try to get these records when complete. Assessment & Plan (08/30/2024 9:30 AM EST): Currently denying any typical anginal symptoms. Over the past few months has been having transient episodes of palpitations associated with shortness of breath which is worsened with exertion at that time. Recently had a prolonged episode which prompted him to seek care at [facility], ED workup was unremarkable. Will get 30-day event monitor due to the palpitations Update nuclear stress test Continue aspirin/atorvastatin. 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 Class 2 severe obesity due t o excess calories with serious comorbidity in adult 08/22/2023 Assessment & Plan (02/28/2024 1:42 PM EDT): As mentioned I talked to him at length about this Assessment & Plan (08/22/2023 7:52 AM EST): We did talk about the necessity of losing weight Social History Tobacco Use Types Packs/Day Years Used Date Smoking Tobacco: Former Cigarettes Smokeless Tobacco: Former Tobacco Cessation:Counseling Given: Not Answered Education Answer Date Recorded Are you interested [...] Sign Reading Time Taken Comments Blood Pressure 126/82 12/31/2024 12:35 PM EDT Pulse 80 12/31/2024 12:35 PM EDT Temperature - - Respiratory Rate - - Oxygen Saturation 98% 12/31/2024 12:35 PM EDT Inhaled Oxygen Concentration - - Weight 110.7 kg (244 lb) 12/31/2024 12:35 PM EDT Height 172.7 cm (5' 7.99 ) 12/31/2024 12:35 PM E DT Body Mass Index 37.11 12/31/2024 12:35 PM EDT Plan of Treatment Upcoming Encounters Date Type Department Care Team (Late st Contact Info) Description 07/29/2025 10:00 AM EST Office Visit [facility] [address] [facility] 3rd Floor, [address] [place] [address] Emil Faulkner DO [address] [facility] [address] [place] [address] [email or web address] Health Maintenance Due Date Last Done Comments DEPRESSION SCREENING 1962 SMOKING Hx and SMOKELESS TOBACCO SCREENING 1963 HEPATITIS C SCREENING 02/14/1968 COLOGUARD 1995 COLONOSCOPY 1995 COLORECTAL CANCER SCREENING 1995 FIT TEST 1995 FOBT 1995 SIGMOIDOSCOPY 1995 VIRTUAL COLONOSCOPY 1995 ZOSTER VACCINES (2 of 3) 09/20/2012 07/26/2012 Adult Td,Tdap Booster 03/11/2021 03/11/2011, 005 DIABETIC EYE EXAM 08/22/2023 URINE MICROALBUMIN/CREATININE RATIO 08/22/2023 HEMOGLOBIN A1C 02/20/2024 08/22/2023 RSV VACCINE (1 - 1-dose 75+ series) 2025 INFLUENZA VACCINE (#1) 2025 , 06/05/2019, 04/29/2017, Additional history exists COVID-19 VACCINE ( season) 2025 10/26/2020, 09/27/2020 BLOOD PRESSURE 07/02/2025 12/31/2024 PNEUMOCOCCAL VACCINES (50+ years) Completed 11/15/2018, 04/30/2015, 09/10/2013, Additional history exists HEPATITIS A VACCINES Aged Out No long er eligible based on patient's age to complete this topic HIB VACCINES Aged Out No longer eligi ble based on patient's age to complete this topic MENINGOCOCCAL VACCINES (ACWY) Aged Out No longer eligible based on patient's age to complete this topic MENINGOCOCCAL VACCINES (B) Aged Out N o longer eligible based on patient's age to complete this topic Medical Devices Not on file Procedures Procedure Name Priority Date/Time Associated Diagnosis Comments HEMOGLOBIN A1C Routine 08/22/2023 8:00 AM EST Shortness of breath from Last 3 Months or Most Recently Relevant to Health Maintenance Results * (ABNORMAL) Hemoglobin A1c (08/22/2023 8:00 AM EST) HEMOGLOBIN A1C 7.5(H) 4.3 - 5.8 % [facility] Blood 08/22/2023 8:00 AM EST 08/22/2023 8:05 AM EST us Emil Faulkner DO LAB BLOOD ORDERABLES Final Re sult [address] [address] from Last 3 Months or Most Recently Relevant to Health Maintenance Insurance [place]ALTH [place] [address] [place] [address] HEALTH PLAN HEALTH PLAN PLAN PLAN FAMILY HEALTH PLAN Care Teams Poultry Cutter Relationship Specialty Start Date End Date Mandy Smith MD PCP - General 08/04/17 Additional Source Comments The information contained in this document represents components of the legal health record. It is not the complete legal health record.[facility]
[2025-04-13 11:15] LABS: MANUAL DIFF FLAG NO
[2025-04-13 11:22] LABS: Hematocrit 47.3 % (42.0-52.0); Hemoglobin 15.8 g/dl (14.0-18.0); Imm Gran Abs Auto 0.01 X10*3/uL (0.00-0.03); Imm Gran Pct Auto 0.2 % (0.0-0.4); Lymphocytes Absolute Auto 1.4 X10*3/uL (1.2-4.9); Mean Corpuscular HGB Conc 33.4 g/dl (31.0-36.0); Mean Corpuscular Hemoglobin 30.0 pg (27.0-33.0); Mean Corpuscular Volume 89.8 fL (80.0-98.0); NRBC Abs Auto 0.000 X10*3/uL (0.0-0.012); NRBC Pct Auto 0.0 /100WBC (0.0-0.2); Platelet Count 153 X10*3/uL (160-400); Red Blood Count 5.27 X10*6/uL (4.60-5.80); White Blood Count 6.2 X10*3/uL (4.8-10.8)
[2025-04-13 11:42] LABS: Hemoglobin A1C 301.7683 umol/L; Total Hemoglobin (HGBA1C) 4135.1550 umol/L
[2025-04-13 11:43] LABS: Alanine Aminotransferase 24 U/L (0-40); Albumin Level 4.0 g/dL (3.5-5.0); Alkaline Phosphatase 75 U/L (39-117); Anion Gap 14 (12-20); Aspartate Amino Transferase 29 U/L (5-37); Blood Urea Nitrogen 22 mg/dL (9-16); Calcium 8.9 mg/dL (8.4-10.2); Carbon Dioxide 23 mmol/L (22-29); Chloride 107 mmol/L (96-108); Estimated Glomerular Filt Rate 50; Potassium 4.1 mmol/L (3.3-5.1); Sodium 140 mmol/L (135-145); Total Protein 6.5 g/dL (6.5-8.0)
[2025-04-13 11:56] LABS: Prostate Specific Antigen 0.18 ng/mL (<0.05-4.0)
== END 2025-04-13 08:09 | disposition home or self-care (01) ==
LOC: HO.HMGCLDS 08:08
PROVIDERS: PCP Internal Medicine; Visit Provider Internal Medicine
DX: K21.9 Gastro-esophageal reflux disease without esophagitis (principal); E11.65 Type 2 diabetes mellitus with hyperglycemia; I25.810 Atherosclerosis of coronary artery bypass graft(s) without angina pectoris; Z79.4 Long term (current) use of insulin; Z95.1 Presence of aortocoronary bypass graft; Z12.5 Encounter for screening for malignant neoplasm of prostate
CPT/HCPCS: 36415; 80053; 83036; 84153; 85025

== ENCOUNTER 2025-04-15 10:33 | Outpatient (AMB) | payer OTHER, SELFPAY ==
--- NOTE | 2025-04-15 10:59 | MHC.PC.OV ---
Vital Signs 04/15/25 11:00 Height 5 ft 6.3 in Weight 246 lb 6 oz BMI 39.4 BP 126/74 Blood Pressure Location Rt brachial Position Sitting Respiration 16 Pulse 81 Pulse Source Pulse Oximeter Pulse Oximetry (%) 98 Oxygen Delivery Method Room Air Intake Visit Reasons: DM Intake Note: Diabetes follow up [employer] Plant Supervisor Required: No Allergies Opioids - Morphine Analogues Allergy (Unknown, Verified 04/15/25 11:00) Rash Tobacco use date assessed: 11/29/24 Fall risk assessment: No Falls in past year Last assessed Fall Risk: 04/15/25 Dental Screening Dental Screen Date: 11/29/24 HPI HPI Comments History of Present Illness Details The patient is a 75 year old male with a past medical history of type 2 diabetes, insulin use, CAD, dCHF, hypertension, hyperlpidemia, GERD, OA, MRSA, obesity, gout presenting for follow up Endocrine: Type 2 insulin dependent diabetes. On lantus 48 units, trulicity, jardiance. A1C 8.8% apr 2025 from 7.9% up from 5.7% from 7.6%. Reports medication compliance. UTD for eye exam-Dr Poole, [facility]. No podiatry. ED-failed viagra, prn cilais in the past. Reports dietary non compliance, less physical actiity since last visit CV: Follows with Dr Faulkner. CAD s/p PCI LAD 2005 and ANASTASIA to OM 2008 then CABG x 4 ~04/2016. On ASA, lipitor, lopressor, lasix, and NTG prn. Off lisinopril. UTD stress test and echocardiogram, holter MSK: Stable right sided sciatica. History of colon polyp. Last colonoscopy 2014-advised 10 year repeat-consult end of apr ROS see HPI PHYSICAL EXAM: GENERAL: Alert and oriented x 3. NAD EYES: EOMI. Anicteric. HENT: Moist mucous membranes. No scleral icterus. No cervical lymphadenopathy. LUNGS: scattered left anterior wheeze CARDIOVASCULAR: Regular rate and rhythm. No murmur. No JVD. ABDOMEN: Soft, non-tender +bs EXTREMITIES: No edema. Non-tender. SKIN: No rashes or lesions. Warm. NEUROLOGIC: No focal neurological deficits. CN II-XII grossly intact PSYCHIATRIC: Cooperative. Appropriate mood and affect [facility] Medical History Hypotension Pre-op evaluation Surgical History History of knee replacement procedure of right knee Family History Maternal Grandfather Cardiovascular disease Maternal Grandmother Diabetes Hypercholesteremia Social History Housing: House Alcohol intake: current Patient Tobacco Use Status: Former Tobacco user e-Cigarette/Vaping Use: Never Used Second Hand Smoke Exposure: No service: Yes Current occupational status: retired Cognitive needs: No Hearing needs: Yes ( states he needs hearing aids) Vision needs: Yes (glasses) Questionnaire Thrive Questionnaire Date Thrive assessed: 08/14/24 I am a: Patient What is your living situation today?: I have a steady place to live Within the past 12 months, did the food you bought not last and you didn't have the money to get more?: Never true Within the past 12 months, did you worry whether your food would run out before you got money to buy more?: Never true Do you have trouble paying for medicines?: No Do you have trouble getting transportation to medical appointments?: No Do you have trouble paying your heating and electricity bill?: No Do you have trouble taking care of your child, family member or friend?: No Do you have trouble with day-to-day activities such as bathing, preparing meals, shopping, managing finances, etc.?: No Are you currently unemployed and looking for a job?: I choose not to answer this question Are you interested in more education?: No Please select the resources that you would like help with: None Currently or been in a relationship where the following occur: No concerns reported THRIVE Score: 0 JOELLE-7 AMB Questionnaire JOELLE-7 Date JOELLE - 7 assessed: 11/29/24 Source: Developed by Drs. Gary Davidson, Mary Moe, Chris Johnson and colleagues, with an educational jayesh from [employer]. Physical exam (Primary Care) Vital Signs: Last Vital Signs Pulse 81 04/15/25 11:00 Resp 16 04/15/25 11:00 BP 126/74 04/15/25 11:00 Pulse Ox 98 04/15/25 11:00 Oxygen Delivery Method Room Air 04/15/25 11:00 BMI result Body Mass Index 39.4 Tobacco/Smoking Status: Tobacco use Status Tobacco use date assessed 11/29/24 04/15/25 11:03 Patient Tobacco Use Status Former Tobacco user 04/15/25 11:03 e-Cigarette/Vaping Use Never Used 04/15/25 11:03 Thrive Assessment: Date of Thrive Assessment Date Thrive assessed 08/14/24 04/15/25 11:03 Currently or been in a relationship where the following occur: No concerns reported Coding Level of Care Code Est Pt Level 4 (74363) Complex EM visit Add On G2211 Diagnoses Type 2 diabetes mellitus with hyperglycemia, with long-term current use of insulin E11.65; Z79.4 Coronary artery disease involving coronary bypass graft of [place] heart without angina pectoris I25.810 Coronary Disease-Associated Artery/Lesion type: bypass graft [place] vs. transplanted heart: [place] heart Associated angina: without angina Morbid obesity E66.01 Assessment & Plan Assessment & Plan (1) Type 2 diabetes mellitus with hyperglycemia, with long-term current use of insulin: Code(s): E11.65 - Type 2 diabetes mellitus with hyperglycemia; Z79.4 - longterm (current) use of insulin Category: Medical (2) CAD (coronary artery disease): Code(s): I25.10 - Atherosclerotic heart disease of [place] coronary artery without angina pectoris Category: Medical Qualifiers: Coronary Disease-Associated Artery/Lesion type: bypass graft [place] vs. transplanted heart: [place] heart Associated angina: without angina Qualified Code(s): I25.810 - Atherosclerosis of coronary artery bypass graft(s) without angina pectoris (3) Morbid obesity: Comment: Recommend 30 minutes cardiovascular exercise at least 5 times weekly, continue GLP, decrease calories Code(s): E66.01 - Morbid (severe) obesity due to excess calories Category: Medical Plan DM-poorly controlled at present. Notes increased appetite, worsening diet. Switch trulicity to mounjaro. annual eye exams. CAD-bp controlled on current medications. Efforts toward weight loss Upcoming GI consult for colonoscopy Orders: Orders Hemoglobin A1c 3 Months E11.65 - Type 2 diabetes mellitus with hyperglycemia, Z79.4 - longterm (current) use of insulin Comprehensive Met. Panel 3 Months E11.65 - Type 2 diabetes mellitus with hyperglycemia, Z79.4 - oil heaterman (current) use of insulin Microalbumin, Random (w Creat) 3 Months E11.65 - Type 2 diabetes mellitus with hyperglycemia, Z79.4 - oil heaterman (current) use of insulin Medications: New Mounjaro (tirzepatide) switching from 1.5 trulicity 5 mg (0.5 mL) subcut QWEEK 2 mL 3RF NS E11.65 - Type 2 diabetes mellitus with hyperglycemia, Z79.4 - longterm (current) use of insulin
[2025-04-15 11:00] VITALS: BP 126/74; PULSE 81; RESP 16; O2SAT 98; BMI 39.4
--- OUTSIDE RECORDS SUMMARY | 2025-04-15 13:35 | XMS_ITS | Encounter Summary ---
Author Organization [facility] Address [address] [facility] [address] [place] [address] Phone Care Team Providers Care Instructional Systems Design Consultant Name Role Phone Mandy Smith MD Primary Care Provider [phone] Encounter Details Date Type Department Care Team (Late st Contact Info) Description 08/22/2023 Procedure Pass Echo Lab [place] [place] [address] Social History Tobacco Use Types Packs/Day Years [...] Description 07/29/2025 10:00 AM EST Office Visit [facility] [address] [place] [address] Dr 3rd Floor, [address] [place] [address] Emil Faulkner DO [address] [facility] [address] [place] [phone] documented as of this encounter Visit Diagnoses Not on filedocumented in this encounter Care Teams Instructional Systems Design Consultant Relationship Specialty Start Date End Date Mandy Smith MD PCP - General 08/04/17 documented as of this encounter Additional Source Comments The information contained in this document represents components of the legal health record. It is not the complete legal health record.[facility]
--- OUTSIDE RECORDS SUMMARY | 2025-04-15 13:35 | XMS_ITS | Clinical Summary ---
Author Organization [facility] Address [address] [place] [address] Phone Care Team Providers Care Gunstock Spray Unit Feeder Name Role Phone Mandy Smith MD Primary [...] work through his PCP next week through [employer] [facility] Lab Results Component Value Date CHOL [...] which prompted him to seek care at [facility], ED workup was unremarkable. Will get [...] Description 07/29/2025 10:00 AM EST Office Visit [facility] [address] [facility] 3rd Floor, [address] [place] [address] Emil Faulkner DO [address] [facility] [address] [place] [address] [email or web address] Health Maintenance Due Date Last Done Comments [...] HEMOGLOBIN A1C 7.5(H) 4.3 - 5.8 % [facility] Blood 08/22/2023 8:00 AM EST 08/22/2023 8:05 AM EST us Emil Faulkner DO LAB BLOOD ORDERABLES Final Re sult [address] [address] from Last 3 Months or Most Recently Relevant to Health Maintenance Insurance HE[place] [address] HEALTH PLAN HEALTH PLAN PLAN PLAN FAMILY HEALTH PLAN Care Teams Gunstock Spray Unit Feeder Relationship Specialty Start Date End Date Mandy Smith MD PCP - General 08/04/17 Additional Source Comments The information contained in this document represents components of the legal health record. It is not the complete legal health record.[facility]
--- OUTSIDE RECORDS SUMMARY | 2025-04-15 13:35 | XMS_ITS | Encounter Summary ---
Author Organization [facility] Address [address] [facility] [address] [place] [phone] Phone Care Team Providers Care Tie In Hand Name Role Phone Mandy Smith MD Primary Care Provider Encounter Details Date Type Department Care Team (Late st Contact Info) Description 10/31/2024 Procedure Pass Echo Lab [place] [place] [address] Social History Tobacco Use Types Packs/Day Years [...] Description 07/29/2025 10:00 AM EST Office Visit [facility] [address] Floor, [address] [place] [address] Emil Faulkner DO [address] [facility] [address] [place] [phone] documented as of this encounter Visit Diagnoses Not on filedocumented in this encounter Care Teams Tie In Hand Relationship Specialty Start Date End Date Mandy Smith MD PCP - General 08/04/17 documented as of this encounter Additional Source Comments The information contained in this document represents components of the legal health record. It is not the complete legal health record.[facility]
--- OUTSIDE RECORDS SUMMARY | 2025-04-15 13:35 | XMS_ITS | Clinical Summary ---
Author Organization [facility] Address [address] [place] [address] Care Team Providers Care Blanket Weaver Name Role Phone Mandy Mcpherson MD Primary Care Provider [phone] Allergies Active Allergy Reactions Criticality Noted Date [...] age to complete this topic Care Teams Blanket Weaver Relationship Specialty Start Date End Date Mandy Mcpherson MD PCP - General Internal Medicine 11/06/18
== END 2025-04-15 11:17 | disposition home or self-care (01) ==
LOC: HO.HMCFM 10:34
PROVIDERS: PCP Internal Medicine; Visit Provider Internal Medicine
DX: E11.65 Type 2 diabetes mellitus with hyperglycemia (principal); Z79.4 Long term (current) use of insulin; E66.01 Morbid (severe) obesity due to excess calories; Z68.39 Body mass index [BMI] 39.0-39.9, adult; I25.810 Atherosclerosis of coronary artery bypass graft(s) without angina pectoris

== ENCOUNTER → 2025-04-15 10:33 | Outpatient (BNVA) | payer OTHER, SELFPAY | PROVIDERS: PCP Internal Medicine; Visit Provider Internal Medicine | DX: E11.65 Type 2 diabetes mellitus with hyperglycemia (principal); I25.810 Atherosclerosis of coronary artery bypass graft(s) without angina pectoris; E66.01 Morbid (severe) obesity due to excess calories; Z68.39 Body mass index [BMI] 39.0-39.9, adult; I11.0 Hypertensive heart disease with heart failure; I50.30 Unspecified diastolic (congestive) heart failure; Z79.4 Long term (current) use of insulin; Z79.82 Long term (current) use of aspirin; Z79.899 Other long term (current) drug therapy | CPT/HCPCS: 99212 ==

== ENCOUNTER 2025-04-24 13:46 | Outpatient (AMB) | payer OTHER, SELFPAY ==
--- NOTE | 2025-04-24 13:52 | MHC.OFFVIS ---
Vital Signs 04/24/25 13:53 Height 5 ft 6.3 in Weight 246 lb BMI 39.3 BP 134/63 Blood Pressure Location Lt brachial Position Sitting Pulse 86 Pulse Oximetry (%) 95 Oxygen Delivery Method Room Air Oxygen Flow Rate 95 Intake Visit Reasons: Colonoscopy Screening Intake Note: Patient new consult for 3rd pre Colonoscopy screening. He does not remember where he went for the last 2 Patient denies any GI issues for today. Software Test Analyst Required: No Accompanied by: Self / Same As Patient Allergies Opioids - Morphine Analogues Allergy (Unknown, Verified 04/24/25 13:52) Rash Medication List - Last Reconciled 04/24/25 by Janet Marmolejo CNP aspirin (Adult Low Dose Aspirin) 81 mg PO DAILY atorvastatin 80 mg PO DAILY blood sugar diagnostic (FreeStyle Lite Strips) As directed colchicine 0.6 mg PO DAILY PRN empagliflozin (Jardiance) 10 mg PO DAILY FreeStyle Lou 3 Plus Sensor (blood-glucose sensor) every 15 days NS FreeStyle Lou 3 Mahomet (blood-glucose,dental hygiene administrative assistant,cont) As directed NS furosemide 40 mg (2 x 20 mg) PO DAILY glucosamine sulfate 1,000 mg PO BID ibuprofen 800 mg PO Q8H PRN insulin glargine (Lantus Solostar U-100 Insulin) 48 units subcut DAILY lancets (FreeStyle Lancets) As directed metoprolol tartrate 50 mg PO BID Mounjaro (tirzepatide) 5 mg (0.5 mL) subcut QWEEK NS nitroglycerin 0.3 mg sublingual Q5M PRN Trulicity (dulaglutide) 1.5 mg (0.5 mL) subcut QWEEK NS HPI HPI Colonoscopy Screening: Details: Patient is a 75-year-old male with PMH of obesity, diabetes, CAD, OA and GERD. Referred by PCP for pre colonoscopy screening Shares his last colonoscopy was approximately 9?10 years ago, completed at outside facility. Reports regular, near-daily bowel movements without diarrhea, constipation, or hematochezia. Occasionally experiences mild abdominal discomfort before bowel movements. Endorses heartburn triggered by particular foods approximately a couple of times per month, responsive to Tums, with no associated dysphagia or regurgitation. Medical history includes diabetes mellitus (currently on multiple agents), hypertension, hyperlipidemia, heart failure with prior CABG and stenting, and chronic aspirin use. Most recent labs (within past 1?2 weeks) show stable renal and liver function, and no anemia. Patient denies: fever/chills, n/v, appetite changes,, regurgitation,dysphasia, unintentional wt loss or melena/hematochezia. Social hx: -denies ETOH use -denies recreational drug use -former smoker, cessation 50+ years ago - family hx as below -denies personal hx of CA -tolerated anesthesia in the past without difficulty. [facility] Medical History Hypotension Pre-op evaluation Surgical History History of knee replacement procedure of right knee Family History Maternal Grandfather Cardiovascular disease Maternal Grandmother Diabetes Hypercholesteremia Social History Housing: House Alcohol intake: current Patient Tobacco Use Status: Former Tobacco user e-Cigarette/Vaping Use: Never Used Second Hand Smoke Exposure: No service: Yes Current occupational status: retired Cognitive needs: No Hearing needs: Yes ( states he needs hearing aids) Vision needs: Yes (glasses) Review of Systems Const Reports as per HPI ENT Reports as per HPI Card Reports as per HPI Resp Reports as per HPI GI Reports as per HPI Reports as per HPI Physical Exam Vital Signs: Last Vital Signs Pulse 86 04/24/25 13:53 BP 134/63 04/24/25 13:53 Pulse Ox 95 04/24/25 13:53 Oxygen Delivery Method Room Air 04/24/25 13:53 Oxygen Flow Rate 95 04/24/25 13:53 BMI result Body Mass Index 39.3 Const General: healthy appearing, no acute distress and well developed Nutritional Appearance: obese Orientation/consciousness: patient oriented x3 HEENT Head: Yes normal to inspection, Yes normocephalic and Yes atraumatic Face and sinus: Yes normal facial exam Eyes General: appearance normal, both eyes and all related structures Neck Neck: Yes normal visual inspection Resp Effort & Inspection: normal respiratory effort, able to speak in complete sentences, no tracheal deviation and symmetric chest movement Cardio Jugular venous distension: no JVD GI Inspection: Yes normal to inspection, No distended and Yes obesity Neuro General: patient oriented x3 Gait exam (Neuro): Normal gait present Psych Appearance: grossly normal Mental Status: mental status grossly normal Speech and movement: Normal speech and movement present Affect: normal affect Attitude: cooperative Thought process: Normal thought process present Thought content: Normal thought content present Insight: Good insight present (Psych) Judgement: Good judgement present (Psych) Assessment & Plan Assessment & Plan (1) Screening for colon cancer: Code(s): Z12.11 - Encounter for screening for malignant neoplasm of colon Category: Medical Plan: >9 yrs since last colonoscopy; no hx of FDR GI malignancy Additional Testing: - Colonoscopy ordered - Labs reviewed and reassuring; no further pre-op labs indicated at this time - Cardiology clearance needed due to hx of CHF and CABG Medication Management: - Hold aspirin, Jardiance, Trulicity/Manjaro, and adjust Lantus per pre-op instructions; Nurse to review med holds per protocol. Lifestyle Recommendations: - Clear liquid diet day before procedure, avoid red/blue/purple dyes, Miralax split prep regimen, ensure reliable transport Follow-Up: - Office nurse to review medication holds/prep instructions week of procedure - F/U as scheduled post-procedure (2) GERD (gastroesophageal reflux disease): Code(s): K21.9 - Gastro-esophageal reflux disease without esophagitis Category: Medical Qualifiers: Esophagitis presence: esophagitis presence not specified Qualified Code(s): K21.9 - Gastro-esophageal reflux disease without esophagitis Plan: Episodic heartburn, responsive to Tums, but warrants EGD due to chronicity and tissue risk - Additional Testing: - EGD (to coincide with planned colonoscopy) - Medication Management: - Continue current as-needed antacids if effective; may reconsider if EGD findings abnormal - Lifestyle Recommendations: - Avoid known dietary triggers - Follow-Up: - Office visit after procedure to review pathology and findings Plan Follow-up after endoscopy or sooner as needed Time: I spent a total of 23 minutes on the date of encounter which includes: Preparing to see the patient (reviewed previous documentation, test results and medical history) Performing a medically appropriate exam and/or evaluation Ordering medications, tests, and procedures Documenting clinical information in the health record Orders: Referrals GI Procedure Notification K21.9 - Gastro-esophageal reflux disease without esophagitis, Z12.11 - Encounter for screening for malignant neoplasm of colon Medications: New bisacodyl Take per colonoscopy instructions 5 mg PO ONCE 4 tabs 0RF polyethylene glycol 3350 (Miralax) per colonoscopy prep instructions 238 grams PO ONCE 238 grams 0RF Coding Level of Care Code New Pt New Pt Level 2 (09108) Patient Type New Exam Expanded Problem Focused Diagnoses Screening for colon cancer Z12.11 Gastroesophageal reflux disease, unspecified whether esophagitis present K21.9 Esophagitis presence: esophagitis presence not specified
[2025-04-24 13:53] VITALS: BP 134/63; PULSE 86; O2SAT 95; BMI 39.3
--- OUTSIDE RECORDS SUMMARY | 2025-04-24 16:14 | XMS_ITS | Encounter Summary ---
Author Organization [facility] Address [address] [facility] [address] [place] [phone] Phone Care Team Providers Care Powerhouse Oiler Name Role Phone Mandy Smith MD Primary Care Provider Encounter Details Date Type Department Care Team (Late st Contact Info) Description 08/22/2023 Procedure Pass Echo Lab [place] [place] [address] Social History Tobacco Use Types Packs/Day Years [...] Description 07/29/2025 10:00 AM EST Office Visit [facility] [address] [place] [address] [address] Floor, [address] [place] [address] Emil Faulkner DO [address] [facility] [address] [place] [address] documented as of this encounter Visit Diagnoses Not on filedocumented in this encounter Care Teams Powerhouse Oiler Relationship Specialty Start Date End Date Mandy Smith MD PCP - General 08/04/17 documented as of this encounter Additional Source Comments The information contained in this document represents components of the legal health record. It is not the complete legal health record.[facility]
--- OUTSIDE RECORDS SUMMARY | 2025-04-24 16:14 | XMS_ITS | Encounter Summary ---
Author Organization [facility] Address [address] [facility] [address] [place] [phone] Phone Care Team Providers Care Budget Director Name Role Phone Mandy Smith MD Primary Care Provider Encounter Details Date Type Department Care Team (Late st Contact Info) Description 10/31/2024 Procedure Pass Echo Lab [place] [place] [address] Social History Tobacco Use Types Packs/Day Years [...] Description 07/29/2025 10:00 AM EST Office Visit [facility] [address] [place] [address] Floor, [address] [place] [address] Emil Faulkner DO [address] [facility] [address] [place] [address] documented as of this encounter Visit Diagnoses Not on filedocumented in this encounter Care Teams Budget Director Relationship Specialty Start Date End Date Mandy Smith MD PCP - General 08/04/17 documented as of this encounter Additional Source Comments The information contained in this document represents components of the legal health record. It is not the complete legal health record.[facility]
--- OUTSIDE RECORDS SUMMARY | 2025-04-24 16:14 | XMS_ITS | Clinical Summary ---
Author [facility] Address [address] [place] [address] Care Team Providers Care Review Appraiser Name Role Phone Mandy Mcpherson MD Primary Care Provider [phone] Allergies Active Allergy Reactions Criticality Noted Date [...] age to complete this topic Care Teams Review Appraiser Relationship Specialty Start Date End Date Mandy Mcpherson MD PCP - General Internal Medicine 11/06/18
== END 2025-04-24 14:28 | disposition home or self-care (01) ==
LOC: HO.HGI 13:47
PROVIDERS: PCP Internal Medicine; Visit Provider Nurse Practitioner Family
DX: Z01.818 Encounter for other preprocedural examination (principal); Z12.11 Encounter for screening for malignant neoplasm of colon; K21.9 Gastro-esophageal reflux disease without esophagitis
CPT/HCPCS: S0285

== ENCOUNTER 2025-07-15 13:33 | Outpatient (AMB) | payer OTHER, SELFPAY ==
--- NOTE | 2025-07-15 13:37 | MHC.PC.OV ---
Vital Signs 07/15/25 13:40 Height 5 ft 6.3 in Weight 237 lb 4 oz BMI 37.9 BP 114/74 Blood Pressure Location Rt brachial Position Sitting Respiration 16 Pulse 72 Pulse Source Pulse Oximeter Temp 97.4 F Temp Source Oral Pulse Oximetry (%) 97 Oxygen Delivery Method Room Air Intake Visit Reasons: DM Intake Note: Diabetes follow up Measurement Advisor Required: No Allergies Opioids - Morphine Analogues Allergy (Unknown, Verified 07/15/25 13:40) Rash Tobacco use date assessed: 07/15/25 Fall risk assessment: No Falls in past year Last assessed Fall Risk: 07/15/25 Dental Screening Dental Screen Date: 11/29/24 HPI HPI Comments History of Present Illness Details The patient is a 75 year old male with a past medical history of type 2 diabetes, insulin use, CAD, dCHF, hypertension, hyperlpidemia, GERD, OA, MRSA, obesity, gout presenting for follow up Endocrine: Type 2 insulin dependent diabetes. On lantus 48 units, mounjaro (switched from trulicity), jardiance. A1C 7.4% from 8.8% apr 2025 from 7.9% up from 5.7% from 7.6%. Reports medication compliance. UTD for eye exam-Dr Poole, [facility]. No podiatry. ED-failed viagra, prn cilais in the past. CV: Follows with cardiology. CAD s/p PCI LAD 2005 and ANASTASIA to OM 2008 then CABG x 4 ~04/2016. On ASA, lipitor, lopressor, lasix, and NTG prn. Off lisinopril. UTD stress test and echocardiogram, holter MSK: Stable right sided sciatica. Intermittent right wrist and hand numbness and discomfort. Helps with carpal tunnel splint History of colon polyp. Last colonoscopy 2014. He saw GI for consult will be scheduled once he gets cardiology clearance ROS see HPI PHYSICAL EXAM: GENERAL: Alert and oriented x 3. NAD EYES: EOMI. Anicteric. HENT: Moist mucous membranes. No scleral icterus. No cervical lymphadenopathy. LUNGS: scattered left anterior wheeze CARDIOVASCULAR: Regular rate and rhythm. No murmur. No JVD. ABDOMEN: Soft, non-tender +bs EXTREMITIES: No edema. Non-tender. SKIN: No rashes or lesions. Warm. NEUROLOGIC: No focal neurological deficits. CN II-XII grossly intact PSYCHIATRIC: Cooperative. Appropriate mood and affect [facility] Medical History Hypotension Pre-op evaluation Surgical History History of knee replacement procedure of right knee Family History Maternal Grandfather Cardiovascular disease Maternal Grandmother Diabetes Hypercholesteremia Social History Housing: House Alcohol intake: current Patient Tobacco Use Status: Former Tobacco user e-Cigarette/Vaping Use: Never Used Second Hand Smoke Exposure: No Use of substances other than those prescribed or required for medical reasons: No service: Yes Current occupational status: retired Cognitive needs: No Hearing needs: Yes ( states he needs hearing aids) Vision needs: Yes (glasses) Questionnaire Thrive Questionnaire Date Thrive assessed: 08/14/24 I am a: Patient What is your living situation today?: I have a steady place to live Within the past 12 months, did the food you bought not last and you didn't have the money to get more?: Never true Within the past 12 months, did you worry whether your food would run out before you got money to buy more?: Never true Do you have trouble paying for medicines?: No Do you have trouble getting transportation to medical appointments?: No Do you have trouble paying your heating and electricity bill?: No Do you have trouble taking care of your child, family member or friend?: No Do you have trouble with day-to-day activities such as bathing, preparing meals, shopping, managing finances, etc.?: No Are you currently unemployed and looking for a job?: I choose not to answer this question Are you interested in more education?: No Please select the resources that you would like help with: None Currently or been in a relationship where the following occur: No concerns reported THRIVE Score: 0 AUDIT C Alcohol Use Questionnaire (AUDIT-C) 1. How often do you have a drink containing alcohol?: Monthly or less 2. How many drinks containing alcohol do you have on a typical day when you are drinking?: 1 or 2 3. How often do you have six or more drinks on one occasion?: Never Total Score: 1 JOELLE-7 AMB Questionnaire JOELLE-7 Date JOELLE - 7 assessed: 11/29/24 Source: Developed by Drs. Gary Davidson, Mary Moe, Chris Johnson and colleagues, with an educational jayesh from [email or web address]. Physical exam (Primary Care) Vital Signs: Last Vital Signs Temp 97.4 F 07/15/25 13:40 Pulse 72 07/15/25 13:40 Resp 16 07/15/25 13:40 BP 114/74 07/15/25 13:40 Pulse Ox 97 07/15/25 13:40 Oxygen Delivery Method Room Air 07/15/25 13:40 BMI result Body Mass Index 37.9 Tobacco/Smoking Status: Tobacco use Status Tobacco use date assessed 07/15/25 07/15/25 13:46 Patient Tobacco Use Status Former Tobacco user 07/15/25 13:39 e-Cigarette/Vaping Use Never Used 07/15/25 13:39 Thrive Assessment: Date of Thrive Assessment Date Thrive assessed 08/14/24 07/15/25 13:39 Currently or been in a relationship where the following occur: No concerns reported Results AMB Hemoglobin A1c AMB Hemoglobin A1c 7.4 % Last Edit by Joyce Camilo CMA on 07/15/25 13:55 Results Reviewed Results Reviewed: Laboratory Last Values Hgb A1c (Clinic) 7.4 % (4.0-6.0) H 07/15/25 13:49 Coding Level of Care Code Est Pt Level 4 (97561) Diagnoses Type 2 diabetes mellitus with hyperglycemia, with long-term current use of insulin E11.65; Z79.4 Chronic diastolic congestive heart failure I50.32 Heart failure chronicity: chronic Polyp of colon, unspecified part of colon, unspecified type K63.5 Colon location: unspecified part of colon Colon polyp type: unspecified Assessment & Plan Assessment & Plan (1) Type 2 diabetes mellitus with hyperglycemia, with long-term current use of insulin: Code(s): E11.65 - Type 2 diabetes mellitus with hyperglycemia; Z79.4 - skilled nursing (current) use of insulin Category: Medical (2) Diastolic congestive heart failure: Code(s): I50.30 - Unspecified diastolic (congestive) heart failure Category: Medical Qualifiers: Heart failure chronicity: chronic Qualified Code(s): I50.32 - Chronic diastolic (congestive) heart failure (3) Colon polyp: Code(s): K63.5 - Polyp of colon Category: Medical Qualifiers: Colon location: unspecified part of colon Colon polyp type: unspecified Qualified Code(s): K63.5 - Polyp of colon Plan Type 2 diabetes-improving control on current regimen. No hypoglycemia. Will consider mounjaro increase next visit CV-BP stable. congratulated on interval weight loss. Continue cardiology follow up. Right wrist numbness, pain-EMG ordered. Orders: Orders AMB Hemoglobin A1c 07/15/25 E11.65 - Type 2 diabetes mellitus with hyperglycemia, Z79.4 - skilled nursing (current) use of insulin Lipid Panel 07/15/25 E11.65 - Type 2 diabetes mellitus with hyperglycemia, K63.5 - Polyp of colon, Z79.4 - skilled nursing (current) use of insulin NE electromyogram (EMG) 07/15/25 M25.531 - Pain in right wrist NE nerve conduction velocity 07/15/25 M25.531 - Pain in right wrist Medications: Discontinued Trulicity (dulaglutide) Discontinued Reason: Doctor's Order 1.5 mg (0.5 mL) subcut QWEEK 6 mL 3RF NS
[2025-07-15 13:40] VITALS: BP 114/74; PULSE 72; RESP 16; TEMP 36.3; O2SAT 97; BMI 37.9
--- OUTSIDE RECORDS SUMMARY | 2025-07-15 19:44 | XMS_ITS | Clinical Summary ---
Author Organization [facility] Prior to 12/29/[address] [place] [address] Care Team Providers Care Site Monitor Name Role Phone Mandy Mcpherson MD Primary Care Provider [phone] Allergies Active Allergy Reactions Criticality Noted Date [...] age to complete this topic Care Teams Site Monitor Relationship Specialty Start Date End Date Mandy Mcpherson MD PCP - General Internal Medicine 11/06/18
--- OUTSIDE RECORDS SUMMARY | 2025-07-15 19:44 | XMS_ITS | Encounter Summary ---
Author Organization [facility] Address [address] [facility] [address] [place] [address] Phone Care Team Providers Care Bicycle Messenger Name Role Phone Mandy Smith MD Primary Care Provider Encounter Details Date Type Department Care Team (Late st Contact Info) Description 10/31/2024 Procedure Pass Echo Lab [place] [place] [address] Social History Tobacco Use Types Packs/Day Years [...] Care Team (Late st Contact Info) Description 07/22/2025 10:00 AM EST Office Visit [facility] [address] [place] [address] Dr [address] Floor, [address] [place] [address] Emil Faulkner DO [address] [facility] [address] [place] [address] documented as of this encounter Visit Diagnoses Not on filedocumented in this encounter Care Teams Bicycle Messenger Relationship Specialty Start Date End Date Mandy Smith MD PCP - General 08/04/17 documented as of this encounter Additional Source Comments The information contained in this document represents components of the legal health record. It is not the complete legal health record.[facility]
--- OUTSIDE RECORDS SUMMARY | 2025-07-15 19:44 | XMS_ITS | Encounter Summary ---
Author Organization [facility] Address [address] [facility] [address] [place] [address] Phone Care Team Providers Care Security Solutions Architect Name Role Phone Mandy Smith MD Primary Care Provider Encounter Details Date Type Department Care Team (Late st Contact Info) Description 08/22/2023 Procedure Pass Echo Lab [address] [place] [address] Social History Tobacco Use Types Packs/Day Years [...] Description 07/22/2025 10:00 AM EST Office Visit [facility] [address] [place] [address] [address] Floor, [address] [place] [address] Emil Faulkner DO [address] [facility] [address] [place] [address] documented as of this encounter Visit Diagnoses Not on filedocumented in this encounter Care Teams Security Solutions Architect Relationship Specialty Start Date End Date Mandy Smith MD PCP - General 08/04/17 documented as of this encounter Additional Source Comments The information contained in this document represents components of the legal health record. It is not the complete legal health record.[facility]
--- OUTSIDE RECORDS SUMMARY | 2025-07-15 19:44 | XMS_ITS | Clinical Summary ---
Author Organization [facility] Address [address] [facility] [address] [place] [address] Phone Care Team Providers Care Vascular Tech Name Role Phone Mandy Smith MD Primary Care Provider [phone] Allergies Active Allergy Reactions Criticality Noted Date [...] work through his PCP next week through [facility] Lab Results Component Value Date CHOL [...] which prompted him to seek care at [facility], ED workup was unremarkable. Will get 30-day [...] Description 07/22/2025 10:00 AM EST Office Visit [facility] [address] [facility] 3rd Floor, [address] [place] [address] Emil Faulkner DO 22 [facility] [address] [place] [address] [email or web address] Health Maintenance Due Date Last Done Comments [...] HEMOGLOBIN A1C 7.5(H) 4.3 - 5.8 % [facility] Blood 08/22/2023 8:00 AM EST 08/22/2023 8:05 AM EST us Emil Faulkner DO LAB BLOOD BKR ORDERABLES Iza l Result [facility] [address] [place] [address] from Last 3 Months or Most Recently Relevant to Health Maintenance [place] [address] [place] [place] [address] [place] [address] HEALTH PLAN HEALTH PLAN PLAN HEALTH PLAN HEALTH PLAN Care Teams Vascular Tech Relationship Specialty Start Date End Date Mandy Smith MD PCP - General 08/04/17 Additional Source Comments The information contained in this document represents components of the legal health record. It is not the complete legal health record.[facility]
== END 2025-07-15 14:13 | disposition home or self-care (01) ==
LOC: HO.HMCFM 13:34
PROVIDERS: PCP Internal Medicine; Visit Provider Internal Medicine
DX: E11.65 Type 2 diabetes mellitus with hyperglycemia (principal); Z79.4 Long term (current) use of insulin; I50.32 Chronic diastolic (congestive) heart failure; K63.5 Polyp of colon

== ENCOUNTER → 2025-07-15 13:33 | Outpatient (BNVA) | payer OTHER, SELFPAY | PROVIDERS: PCP Internal Medicine; Visit Provider Internal Medicine | DX: E11.65 Type 2 diabetes mellitus with hyperglycemia (principal); I50.32 Chronic diastolic (congestive) heart failure; K63.5 Polyp of colon; R20.0 Anesthesia of skin; M25.531 Pain in right wrist; Z79.4 Long term (current) use of insulin; Z79.82 Long term (current) use of aspirin; Z79.899 Other long term (current) drug therapy | CPT/HCPCS: 83036; 99212 ==

== ENCOUNTER 2025-07-19 10:33 | Outpatient (REF) | payer OTHER, SELFPAY ==
--- NOTE | ~2025-07-19 | XR_ITS ---
EXAMINATION: XR WRIST, RIGHT CLINICAL INFORMATION: M25.531 - Pain in right wrist COMPARISON: None available. TECHNIQUE: PA, lateral, and oblique views of the right wrist. FINDINGS: There is loss of first carpometacarpal joint space with small enthesophyte. No visible acute fracture, dislocation seen. Radial ulnar and carpal joint space is normal. The soft tissues are normal. There is moderate dorsal wrist soft tissue swelling. XR/XR wrist RT min 3V IMPRESSION: No visible acute fracture, dislocation or subluxation seen. Mild osteoarthritis. Mild dorsal wrist soft tissue swelling Electronically signed by: John Rojas MD 07/19/2025 10:56 AM EST
--- OUTSIDE RECORDS SUMMARY | 2025-07-19 12:13 | XMS_ITS | Clinical Summary ---
Author Organization [facility] Address [address] [facility] [address] [place] [address] Phone Care Team Providers Care Aircraft Fueler Name Role Phone Mandy Smith MD Primary [...] work through his PCP next week through [employer] [facility] Lab Results Component Value Date CHOL [...] which prompted him to seek care at [facility], ED workup was unremarkable. Will get [...] Description 07/22/2025 10:00 AM EST Office Visit [facility] [address] 3rd Floor, [address] [place] [address] Emil Faulkner DO [address] [facility] [address] [place] [address] [email or web address] Health Maintenance Due Date Last Done Comments [...] HEMOGLOBIN A1C 7.5(H) 4.3 - 5.8 % [facility] Blood 08/22/2023 8:00 AM EST 08/22/2023 8:05 AM EST us Emil Faulkner DO LAB BLOOD BKR ORDERABLES Iza l Result [address] [id number] from Last 3 Months or Most Recently Relevant to Health Maintenance Insurance [place] [address] [place] [address] HEALTH PLAN HEALTH PLAN HEALTH PLAN HEALTH PLAN FAMILY HEALTH PLAN Care Teams Aircraft Fueler Relationship Specialty Start Date End Date Mandy Smith MD PCP - General 08/04/17 Additional Source Comments The information contained in this document represents components of the legal health record. It is not the complete legal health record.[facility]
--- OUTSIDE RECORDS SUMMARY | 2025-07-19 12:13 | XMS_ITS | Encounter Summary ---
Author Organization [facility] Address [address] [facility] [address] [place] [phone] Phone Care Team Providers Care Mushroom Spawn Maker Name Role Phone Mandy Smith MD Primary Care Provider Encounter Details Date Type Department Care Team (Late st Contact Info) Description 10/31/2024 Procedure Pass [facility] [address] [place], [place] [id number] Social History Tobacco Use Types Packs/Day Years [...] 07/22/2025 10:00 AM EST Office Visit [facility] [address] [facility] [address]rd Floor, [address] [place], [place] [id number] Emil Faulkner DO [address] [facility] [address] [place] [phone] documented as of this encounter Visit Diagnoses Not on filedocumented in this encounter Care Teams Mushroom Spawn Maker Relationship Specialty Start Date End Date Mandy Smith MD PCP - General 08/04/17 documented as of this encounter Additional Source Comments The information contained in this document represents components of the legal health record. It is not the complete legal health record.[facility]
--- OUTSIDE RECORDS SUMMARY | 2025-07-19 12:13 | XMS_ITS | Clinical Summary ---
Author Organization [facility] Prior to 12/29/[address] [place] [address] Care Team Providers Care Landscaper Helper Name Role Phone Mandy Mcpherson MD Primary Care Provider Allergies Active Allergy [...] age to complete this topic Care Teams Landscaper Helper Relationship Specialty Start Date End Date Mandy Mcpherson MD PCP - General Internal Medicine 11/06/18
--- OUTSIDE RECORDS SUMMARY | 2025-07-19 12:13 | XMS_ITS | Encounter Summary ---
Author Organization [facility] Address [address] [facility] [address] [place] [phone] Phone Care Team Providers Care Splitting Machine Tender Name Role Phone Mandy Smith MD Primary Care Provider [phone] Encounter Details Date Type Department Care Team (Late st Contact Info) Description 08/22/2023 Procedure Pass [facility] [address] [place] [address] Social History Tobacco Use Types Packs/Day Years [...] 07/22/2025 10:00 AM EST Office Visit [facility] [address] [facility] 3rd Floor, [address] [place], [place] [phone] Emil Faulkner DO [address] [facility] [address] [place] [address] documented as of this encounter Visit Diagnoses Not on filedocumented in this encounter Care Teams Splitting Machine Tender Relationship Specialty Start Date End Date Mandy Smith MD PCP - General 08/04/17 documented as of this encounter Additional Source Comments The information contained in this document represents components of the legal health record. It is not the complete legal health record.[facility]
== END 2025-07-19 10:34 | disposition home or self-care (01) ==
LOC: HO.HMGCX 10:33
PROVIDERS: PCP Internal Medicine; Visit Provider Internal Medicine
DX: M25.531 Pain in right wrist (principal)
CPT/HCPCS: 73110

== ENCOUNTER → 2025-07-19 10:36 | Outpatient (BNV) | payer OTHER, SELFPAY | PROVIDERS: PCP Internal Medicine; Visit Provider Radiology Diagnostic Radiology | DX: M25.531 Pain in right wrist (principal) | CPT/HCPCS: 73110 ==